=== PATIENT | female | born 1990 ===

== ENCOUNTER 2017-12-04 11:36 | Inpatient (IN) | payer OTHER ==
[2017-12-04 11:36] VITALS: BMI 30.5
[2017-12-04 14:02] LABS: BASO # 0.3 K/uL (0.0-0.2); BASO % 2.3 % (0.0-2.0); EOS # 0.1 K/uL (0.0-0.7); EOS % 0.9 % (0.0-4.0); HEMOGLOBIN 8.9 g/dL (11.0-16.0); LYMPH % 23.5 % (20.0-40.0); MEAN CORPUSCULAR HEMOGLOBIN 34.3 pg (27.0-31.0); MONO # 0.6 K/uL (0.0-0.8); MONO % 4.6 % (0.0-10.0); NEUT # 8.7 K/uL (1.8-7.0); NEUT % 68.7 % (50.0-75.0); RBC 2.61 Mil/uL (3.80-5.20); RED CELL DISTRIBUTION WIDTH 22.6 % (11.5-14.5); WHITE BLOOD COUNT 12.6 K/uL (4.8-10.8)
[2017-12-04 14:15] LABS: BLOOD UREA NITROGEN 3 mg/dL (7-17); CALCIUM 8.8 mg/dl (8.6-10.4); GFR NON-AFRICAN AMERICAN > 60; LIPASE 32 U/L (23-300)
--- NOTE | 2017-12-04 14:15 | C.PDOC ---
History Of Present Illness 27-year-old female presents to the ED for evaluation of upper abdominal pain, nausea and vomiting which began yesterday. Patient woke up this morning with dry heaving, prompting this visit. Patient also reports decreased appetite. Patient has history of Pancreatitis in July 2017, because she was drinking heavily after her brother in May. Patient notes her current pain feels similar. Patient states she has been consuming several glasses of wine several times a week; her last drink was 4 days ago. She denies fever, chills, and diarrhea. <Sarika Boo - Last Filed: 12/05/17 13:28> <Davion Donaldson - Last Filed: 12/04/17 22:21> History Per: Patient History/Exam Limitations: no limitations Onset/Duration Of Symptoms: Hrs Current Symptoms Are (Timing): Still Present Location Of Pain/Discomfort: Other (upper abdomen ) Associated Symptoms: Nausea, Vomiting. denies: Fever, Diarrhea <Sarika Boo - Last Filed: 12/05/17 13:28> Time Seen by Provider: 12/04/17 13:22 Chief Complaint (Nursing): Abdominal Pain Past Medical History Vital Signs: Last Vital Signs Temp 98.6 F 12/04/17 12:44 Pulse 106 H 12/04/17 20:17 Resp 20 12/04/17 20:17 BP 94/56 L 12/04/17 20:17 Pulse Ox 98 12/04/17 20:17 <Davion Donaldson - Last Filed: 12/04/17 22:21> Reviewed: Historical Data, Nursing Documentation, Vital Signs Vital Signs: Last Vital Signs Temp 98.6 F 12/04/17 12:44 Pulse 104 H 12/04/17 12:44 Resp 17 12/04/17 12:44 BP 114/69 12/04/17 12:44 Pulse Ox 100 12/04/17 12:44 - Medical History PMH: Anemia, Hypercholesterolemia, Hyperlipidemia, Pancreatitis Denies: Chronic Kidney Disease Surgical History: No Surg Hx Family History: States: Unknown Family Hx - Social History Hx Alcohol Use: Yes Hx Substance Use: No - Immunization History Hx Tetanus Toxoid Vaccination: Yes (2016) Hx Influenza Vaccination: No (2016) Hx Pneumococcal Vaccination: (unk) <Sarika Boo - Last Filed: 12/05/17 13:28> Review Of Systems Constitutional: Positive for: Other (decreased appetite ) Gastrointestinal: Positive for: Nausea, Vomiting, Abdominal Pain (upper). Negative for: Diarrhea <Sarika Boo - Last Filed: 12/05/17 13:28> Physical Exam - Physical Exam Appears: Non-toxic, No Acute Distress Skin: Normal Color, Warm, Dry Head: Atraumatic, Normacephalic Eye(s): bilateral: Normal Inspection Oral Mucosa: Moist Neck: Supple Chest: Symmetrical, No Deformity, No Tenderness Cardiovascular: Rhythm Regular, No Murmur Respiratory: Normal Breath Sounds, No Rales, No Rhonchi, No Wheezing Gastrointestinal/Abdominal: Soft, Tenderness (epigastric ), No Guarding, No Rebound Extremity: Normal ROM, Capillary Refill (less than 2 seconds ) Neurological/Psych: Oriented x3, Normal Speech, Normal Cognition <Sarika Boo - Last Filed: 12/05/17 13:28> ED Course And Treatment - Laboratory Results Result Diagrams: 12/04/17 13:58 12/04/17 13:58 ECG: Interpreted By Me, Viewed By Me ECG Rhythm: Sinus Rhythm (106), Nonspecific Changes Pulse Ox Interpretation: Normal Progress Note: spoke with surgical specialist/dr headley -no need for surgery in view of her previous response to steroids. they will continue to monito closely. <MendozaDavion - Last Filed: 12/04/17 22:21> - Laboratory Results Result Diagrams: 12/05/17 06:00 12/05/17 06:00 O2 Sat by Pulse Oximetry: 100 (on RA) Pulse Ox Interpretation: Normal - CT Scan/US CT abd/pelvis Other Rad Studies (CT/US): Read By Radiologist CT/US Interpretation: Hepatosplenomegaly. The liver is massively enlarged. The spleen is markedly enlarged. Patent portal venous system. Gallbladder wall enhancement and pericholecystic fluid are nonspecific findings but can be seen in acute cholecystitis. Gallstones are not evident. RUQ u/s Other Rad Studies (CT/US): Read By Radiologist CT/US Interpretation: Marked hepatosplenomegaly. Heterogeneous and echogenic liver may be seen in setting of hepatic parenchymal disease or fatty infiltration. Gallbladder wall thickening/pericholecystic edema. negative sonographic Medina's sign as assessed by the epic anesthesia analyst. No gallstones identified. Correlate clinically for possibility of acute cholecystitis. <Sarika Boo - Last Filed: 12/05/17 13:28> Medical Decision Making Medical Decision Making: Progress: Bloodwork and urinalysis ordered and reviewed. Toradol IVP and Zofran IVP given. <Sarika Boo - Last Filed: 12/05/17 13:28> Disposition Discussed With Dr.: Jamshid Be Comment: accepted the pt on his service and took over the care at 10:21PM Doctor Will See Patient In The: Hospital Counseled Patient/Family Regarding: Studies Performed, Diagnosis - Disposition Disposition Time: 19:00 <Davion Donaldson - Last Filed: 12/04/17 22:21> <Sarika Boo - Last Filed: 12/05/17 13:28> - Disposition Disposition: HOSPITALIZED Condition: FAIR - Clinical Impression Clinical Impression: Abdominal pain, Nausea, Vomiting, Hyperbilirubinemia, Jaundice, Spleen enlarged - Scribe Statement The provider has reviewed the documentation as recorded by the Scribe (Sona Patton) Provider Attestation: All medical record entries made by the Scribe were at my direction and personally dictated by me. I have reviewed the chart and agree that the record accurately reflects my personal performance of the history, physical exam, medical decision making, and the department course for this patient. I have also personally directed, reviewed, and agree with the discharge instructions and disposition. <Sarika Boo - Last Filed: 12/05/17 13:28> Decision To Admit - Pt Status Changed To: Hospital Disposition Of: Inpatient - Admit Certification Admit to Inpatient:: After my assessment, the patient will require hospitalization for at least two midnights. This is because of the severity of symptoms shown, intensity of services needed, and/or the medical risk in this patient being treated as an outpatient. - InPatient: Physician Admission Certification:: After my assessment, the patient will require hospitalization for at least two midnights. This is because of the severity of symptoms shown, intensity of services needed, and/or the medical risk in this patient being treated as an outpatient. - . Bed Request Type: Regular Admitting Physician: Jamshid Be <Davion Donaldson - Last Filed: 12/04/17 22:21> <Sarika Boo - Last Filed: 12/05/17 13:28> - . Patient Diagnosis: Abdominal pain, Nausea, Vomiting, Hyperbilirubinemia, Jaundice, Spleen enlarged
[2017-12-04 14:23] LABS: URINE BILIRUBIN 1+ (NEGATIVE); URINE BLOOD NEGATIVE (NEGATIVE); URINE CLARITY Clear (Clear); URINE COLOR Amber (YELLOW); URINE GLUCOSE (UA) NORMAL (Normal); URINE LEUKOCYTE ESTERASE NEG Leu/uL (Negative); URINE PROTEIN NEGATIVE (NEGATIVE); URINE UROBILINOGEN NORMAL mg/dL (0.2-1.0)
[2017-12-04] MEDS ORDERED: Iodixanol 320 MG/ML 100 ML BOTTLE IV ONE (15:57)
[2017-12-04] MEDS ORDERED: Morphine 4 MG/ML VIAL IV ONE (16:28)
[2017-12-04] MEDS ORDERED: Morphine 4 MG/ML VIAL ONE ×2 (16:32→19:05)
--- NOTE | 2017-12-04 17:37 | CT ---
Date of service: 12/04/2017 PROCEDURE: CT Abdomen and Pelvis with contrast HISTORY: Abdominal pain. Negative test (concurrent with this examination). COMPARISON: None. TECHNIQUE: Intravenous contrast dose: 100 cc Visipaque 320 Radiation dose: Total exam DLP = 848.78 mGy-cm. This CT exam was performed using one or more of the following dose reduction techniques: Automated exposure control, adjustment of the mA and/or kV according to patient size, and/or use of iterative reconstruction technique. FINDINGS: LOWER THORAX: Linear atelectasis at the right lung base. LIVER: Hepatic steatosis. Massive hepatomegaly. Cephalocaudal dimension 30.1 cm. Orthogonal measurements 24.9 and 16.3 cm. Heterogeneous appearance of the liver without discrete mass. This is particularly evident in the right hepatic lobe. Attenuation of inferior vena cava within the liver. Dilated portal veins. No evidence of portal vein thrombosis.. GALLBLADDER AND BILE DUCTS: Contrast enhancement the gallbladder wall. Nonspecific finding. No gallstones identified. Gallbladder fossa fluid identified. PANCREAS: Unremarkable. No gross lesion or ductal dilatation. SPLEEN: Massive splenomegaly. Orthogonal measurements 10 x 18 cm. ADRENALS: Unremarkable. No mass. KIDNEYS AND URETERS: Unremarkable. No hydronephrosis. No solid mass. VASCULATURE: Unremarkable. No aortic aneurysm. BOWEL: Unremarkable. No obstruction. No gross mural thickening. APPENDIX: Normal appendix. PERITONEUM: Trace free fluid identified in the pelvis/cul de sac. No free air. LYMPH NODES: Unremarkable. No enlarged lymph nodes. BLADDER: Unremarkable. REPRODUCTIVE: Unremarkable. BONES: No acute fracture. OTHER FINDINGS: None. IMPRESSION: Hepatosplenomegaly. The liver is massively enlarged. The spleen is markedly enlarged. Patent portal venous system. Gallbladder wall enhancement and pericholecystic fluid are nonspecific findings but can be seen in acute cholecystitis. Gallstones are not evident. Additional benign and/or incidental findings described above.
[2017-12-04] MEDS ORDERED: Potassium Chloride 20 mEq 100 ML ONE (18:51)
[2017-12-04 19:05] LABS: ALB/GLOB RATIO 0.8 (1.0-2.1); ALBUMIN 3.6 g/dL (3.5-5.0); BILIRUBIN,DIRECT 9.9 mg/dL (0.0-0.4)
[2017-12-04] MEDS ORDERED: Morphine 4 MG/ML VIAL IV STA (19:05)
--- NOTE | 2017-12-04 22:38 | CP.PCM.CON ---
History of Present Illness - History of Present Illness History of Present Illness: General surgery consult note for Dr. Hoyt Consulted for: acalculous cholecystitis Patient is a 27F with PMH of pancreatitis, hepatomegaly, hypertriglyceridemia, alcoholic hepatitis who was referred to the ED by her primary physician for RUQ abdominal pain and jaundice. Patient states that the pain comes and goes, does not radiate, denies any shoulder or back pain, denies any nausea, vomiting, diarrhea, constipation, melena, hematochezia, dysuria, hematuria, fevers, or chills or any other symptoms. Last BM was normal color and caliber this AM. Patient denies any association with a particular food. Patient was recently admitted at [facility] for similar symptoms 3.5 months ago. Patient had hepatomegaly, thickened gallbladder wall, pericholic fluid, and transaminitis, including bilirubin of 20 at that time. Patient was diagnosed with acute alcoholic hepatitis, treated with steroids, improved, and was sent home. Patient states she finished her steroids, but that there were other medications for her jaundiced/liver that she was unable to take d/t cost. Patient states that she quit drinking after last admission, but that her brother recently and so she has been drinking more--admitting to 2-3 beers at a time, but claims last ingestion was last week. PMH: pancreatitis, HLD, hepatosplenomegaly, hypertriglyceridemia, ectopic , alcoholic hepatitis PSH: ectopic excision ALL: NKDA Social: Denies any smoking, 2-3beers, denies any marijuana or other drugs Review of Systems - Review of Systems All systems: reviewed and no additional remarkable complaints except (as per HPI) Past Patient History - Infectious Disease Hx of Infectious Diseases: None - Past Medical History & Family History Past Medical History?: Yes Past Family History: Reviewed and not pertinent - Past Social History Smoking Status: Never Smoked Alcohol: Occasional Drugs: Denies - CARDIAC Hx Hypercholesterolemia: Yes - PULMONARY Hx Respiratory Disorders: No - NEUROLOGICAL Hx Neurological Disorder: No - HEENT Hx HEENT Problems: No - RENAL Hx Chronic Kidney Disease: No - ENDOCRINE/METABOLIC Hx Endocrine Disorders: No - HEMATOLOGICAL/ONCOLOGICAL Hx Anemia: Yes - INTEGUMENTARY Hx Dermatological Problems: No - MUSCULOSKELETAL/RHEUMATOLOGICAL Hx Musculoskeletal Disorders: No - GASTROINTESTINAL Hx Pancreatitis: Yes - GENITOURINARY/GYNECOLOGICAL Hx Genitourinary Disorders: Yes Other/Comment: IRREGULAR PERIOD - PSYCHIATRIC Hx Substance Use: No - SURGICAL HISTORY Hx Section: Yes - ANESTHESIA Hx Anesthesia: Yes Hx Anesthesia Reactions: No Hx Malignant Hyperthermia: No Meds Allergies/Adverse Reactions: Allergies Allergy/AdvReac Type Severity Reaction Status Date / Time No Known Allergies Allergy Verified 12/04/17 12:48 Physical Exam - Constitutional Appears: Well, Non-toxic, No Acute Distress - Head Exam Head Exam: ATRAUMATIC, NORMOCEPHALIC - Eye Exam Eye Exam: EOMI, Scleral icterus. absent: Conjunctival injection - ENT Exam ENT Exam: Mucous Membranes Moist, Normal Oropharynx - Respiratory Exam Respiratory Exam: NORMAL BREATHING PATTERN. absent: Accessory Muscle Use, Respiratory Distress - Cardiovascular Exam Cardiovascular Exam: RRR - GI/Abdominal Exam GI & Abdominal Exam: Soft, Tenderness (RUQ moderate tenderness to palpation). absent: Distended, Rebound Additional comments: negative wynn's sign - Extremities Exam Extremities exam: Positive for: pedal pulses present. Negative for: calf tenderness, pedal edema - Back Exam Back exam: absent: CVA tenderness (L), CVA tenderness (R) - Neurological Exam Neurological exam: Alert, Oriented x3 - Psychiatric Exam Psychiatric exam: Normal Affect, Normal Mood - Skin Skin Exam: Dry, Intact, Warm Additional comments: jaundiced Results - Vital Signs Recent Vital Signs: Last Vital Signs Temp 98.6 F 12/04/17 12:44 Pulse 106 H 12/04/17 22:20 Resp 18 12/04/17 22:20 BP 105/67 12/04/17 22:20 Pulse Ox 98 12/04/17 22:20 - Labs Result Diagrams: 12/04/17 13:58 12/04/17 13:58 Labs: Laboratory Results - last 24 hr 12/04/17 12/04/17 12/04/17 13:58 13:58 14:13 WBC 12.6 H RBC 2.61 L Hgb 8.9 L Hct 27.1 L MCV 104.0 H MCH 34.3 H MCHC 33.0 RDW 22.6 H Plt Count 204 MPV 8.0 Neut % (Auto) 68.7 Lymph % (Auto) 23.5 [place] % (Auto) 4.6 Eos % (Auto) 0.9 Baso % (Auto) 2.3 H Neut # (Auto) 8.7 H Lymph # (Auto) 3.0 [place] # (Auto) 0.6 Eos # (Auto) 0.1 Baso # (Auto) 0.3 H Sodium 142 Potassium 3.3 L Chloride 103 Carbon Dioxide 23 Anion Gap 19 BUN 3 L Creatinine 0.4 L Est GFR ( Amer) > 60 Est GFR (Non-Af Amer) > 60 Random Glucose 111 H Calcium 8.8 Total Bilirubin Direct Bilirubin AST ALT Alkaline Phosphatase Total Protein Albumin Globulin Albumin/Globulin Ratio Lipase 32 Urine Color [place] Urine Clarity Clear Urine pH 6.0 Ur Specific [place] 1.002 L Urine Protein Negative Urine Glucose (UA) Normal Urine Ketones Negative Urine Blood Negative Urine Nitrate Negative Urine Bilirubin 1+ H Urine Urobilinogen Normal Ur Leukocyte Esterase Neg 12/04/17 18:30 WBC RBC Hgb Hct MCV MCH MCHC RDW Plt Count MPV Neut % (Auto) Lymph % (Auto) [place] % (Auto) Eos % (Auto) Baso % (Auto) Neut # (Auto) Lymph # (Auto) [place] # (Auto) Eos # (Auto) Baso # (Auto) Sodium Potassium Chloride Carbon Dioxide Anion Gap BUN Creatinine Est GFR ( Amer) Est GFR (Non-Af Amer) Random Glucose Calcium Total Bilirubin 11.6 H Direct Bilirubin 9.9 H AST 139 H D ALT 15 Alkaline Phosphatase 262 H D Total Protein 8.1 Albumin 3.6 Globulin 4.5 H Albumin/Globulin Ratio 0.8 L Lipase Urine Color Urine Clarity Urine pH Ur Specific [place] Urine Protein Urine Glucose (UA) Urine Ketones Urine Blood Urine Nitrate Urine Bilirubin Urine Urobilinogen Ur Leukocyte Esterase - Imaging and Cardiology CT scan - abdomen Status: Image reviewed by me, Report reviewed by me US - abdomen Status: Image reviewed by me, Report reviewed by me Assessment & Plan - Assessment and Plan (Free Text) Assessment: 27F with RUQ tenderness, hyperbilirubinemia, transaminitis--likely hepatic in origin Plan: No surgical intervention planned at this time pending further evaluatino Recommend GI consult for hyperbilirubinemia, elevated LFT's, hepatosplenomegaly Recommend IV antibiotics PRN pain and nausea medication Trend CBC/CMP NPO IVF Will continue to follow with you closely Discussed with Dr. Hoyt, who agrees with above Viktoriya Martinez, PG2Y
[2017-12-04 23:52] VITALS: RESP 20
[2017-12-05] MEDS ORDERED: Ciprofloxacin 200mg/100ml D5W 100 ML IVPB STA (00:45)
[2017-12-05] MEDS ORDERED: Multivitamin (MVI) 10 ML, Thiamine 100 MG, Folic Acid 1 MG in Sodium Chloride 0.9% 1,00... IV ONE (00:52)
--- NOTE | 2017-12-05 01:03 | CP.PCM.HP ---
<Juan Pablo Marin - Last Filed: 12/05/17 02:05> History of Present Illness - History of Present Illness History of Present Illness: Juan Pablo Marin PGY-1, H&P for hospitalist CC: Abdominal pain/distension This is a 27 year old female with PMH of alcoholic pancreatitis, suspected alcoholic hepatitis in July 2017, hypertriglycemia, alcohol abuse, and anemia who presents with a 2 day history of abdominal pain with nausea and abdominal distension. Abdominal pain is described as located in the RUQ, intermittent, nonradiating, pressure, that is 8/10. Pt states that the pain was worse with di nner (12/03), but did not change after having breakfast today. Pt reports that she feels full after drinking or eating anything, and states that her abdomen looks more distended than usual. Pt denies fever, chills, chest pain, SOB, n/v/d, change in bowel movements, hematemesis, hematochezia, melena, rash, puritus, sick contacts, recent illness. Pt reports that her brother recently and she has been drinking alcohol. Pt was in [facility] [place] in August (for 8 days), where she drank heavily. Pt's last drink was 4 days ago, 12/02. PMD: Pancreatitis, hypertriglycemia, anemia PSH: 2012 Family History: Father with DM, Uncle had Leukemia Meds: Iron supplement Allergies: NKDA Social history: 2-3 beers on the weekdays, one bottle of wine on the weekend, denies drug or tobacco use. Lives in with and one child. Present on Admission - Present on Admission Any Indicators Present on Admission: No Review of Systems - Review of Systems All systems: reviewed and no additional remarkable complaints except (as per HPI) Past Patient History - Infectious Disease Hx of Infectious Diseases: None - Past Medical History & Family History Past Medical History?: Yes Past Family History: Reviewed and not pertinent - Past Social History Smoking Status: Never Smoked Alcohol: Occasional Drugs: Denies - CARDIAC Hx Hypercholesterolemia: Yes - PULMONARY Hx Respiratory Disorders: No - NEUROLOGICAL Hx Neurological Disorder: No - HEENT Hx HEENT Problems: No - RENAL Hx Chronic Kidney Disease: No - ENDOCRINE/METABOLIC Hx Endocrine Disorders: No - HEMATOLOGICAL/ONCOLOGICAL Hx Anemia: Yes - INTEGUMENTARY Hx Dermatological Problems: No - MUSCULOSKELETAL/RHEUMATOLOGICAL Hx Musculoskeletal Disorders: No - GASTROINTESTINAL Hx Pancreatitis: Yes - GENITOURINARY/GYNECOLOGICAL Hx Genitourinary Disorders: Yes Other/Comment: IRREGULAR PERIOD - PSYCHIATRIC Hx Substance Use: No - SURGICAL HISTORY Hx Section: Yes - ANESTHESIA Hx Anesthesia: Yes Hx Anesthesia Reactions: No Hx Malignant Hyperthermia: No Meds Allergies/Adverse Reactions: Allergies Allergy/AdvReac Type Severity Reaction Status Date / Time No Known Allergies Allergy Verified 12/04/17 12:48 Physical Exam - Constitutional Appears: Non-toxic, No Acute Distress - Head Exam Head Exam: ATRAUMATIC - Eye Exam Eye Exam: EOMI, Normal appearance, Scleral icterus - ENT Exam ENT Exam: Mucous Membranes Moist - Neck Exam Neck exam: Positive for: Normal Inspection - Respiratory Exam Respiratory Exam: Clear to Auscultation Bilateral. absent: Rales, Rhonchi, Wheezes, Respiratory Distress - Cardiovascular Exam Cardiovascular Exam: REGULAR RHYTHM, +S1, +S2 - GI/Abdominal Exam GI & Abdominal Exam: Distended (epigastric fullness), Normal Bowel Sounds, Orga nomegaly (liver edge palpable approx 10 cm from costophrenic angle, sleen edge palpable approx 6 cm from costophrenic angle), Soft, Tenderness ((+) moderate tenderness at the inferior liver edge, (+) wynn's sign). absent: Firm, Guarding, Rebound, Rigid Additional comments: (+) prominent nonpalpable veins on upper abdomen - Extremities Exam Extremities exam: Positive for: normal capillary refill, normal inspection, pedal pulses present. Negative for: calf tenderness, pedal edema, tenderness - Back Exam Back exam: NORMAL INSPECTION. absent: CVA tenderness (L), CVA tenderness (R) - Neurological Exam Neurological exam: Alert, Oriented x3 - Psychiatric Exam Psychiatric exam: Normal Affect, Normal Mood - Skin Skin Exam: Dry, Warm Additional comments: (+) jaundice Results - Vital Signs Recent Vital Signs: Last Vital Signs Temp 98.9 F 12/04/17 23:51 Pulse 98 H 12/04/17 23:51 Resp 20 12/04/17 23:51 BP 101/66 12/04/17 23:51 Pulse Ox 97 12/04/17 23:51 - Labs Result Diagrams: 12/04/17 13:58 12/04/17 13:58 Labs: Laboratory Results - last 24 hr 12/04/17 12/04/17 12/04/17 13:58 13:58 14:13 WBC 12.6 H RBC 2.61 L Hgb 8.9 L Hct 27.1 L MCV 104.0 H MCH 34.3 H MCHC 33.0 RDW 22.6 H Plt Count 204 MPV 8.0 Neut % (Auto) 68.7 Lymph % (Auto) 23.5 [place] % (Auto) 4.6 Eos % (Auto) 0.9 Baso % (Auto) 2.3 H Neut # (Auto) 8.7 H Lymph # (Auto) 3.0 [place] # (Auto) 0.6 Eos # (Auto) 0.1 Baso # (Auto) 0.3 H Sodium 142 Potassium 3.3 L Chloride 103 Carbon Dioxide 23 Anion Gap 19 BUN 3 L Creatinine 0.4 L Est GFR ( Amer) > 60 Est GFR (Non-Af Amer) > 60 Random Glucose 111 H Calcium 8.8 Total Bilirubin Direct Bilirubin AST ALT Alkaline Phosphatase Total Protein Albumin Globulin Albumin/Globulin Ratio Lipase 32 Urine Color [place] Urine Clarity Clear Urine pH 6.0 Ur Specific [place] 1.002 L Urine Protein Negative Urine Glucose (UA) Normal Urine Ketones Negative Urine Blood Negative Urine Nitrate Negative Urine Bilirubin 1+ H Urine Urobilinogen Normal Ur Leukocyte Esterase Neg 12/04/17 18:30 WBC RBC Hgb Hct MCV MCH MCHC RDW Plt Count MPV Neut % (Auto) Lymph % (Auto) [place] % (Auto) Eos % (Auto) Baso % (Auto) Neut # (Auto) Lymph # (Auto) [place] # (Auto) Eos # (Auto) Baso # (Auto) Sodium Potassium Chloride Carbon Dioxide Anion Gap BUN Creatinine Est GFR ( Amer) Est GFR (Non-Af Amer) Random Glucose Calcium Total Bilirubin 11.6 H Direct Bilirubin 9.9 H AST 139 H D ALT 15 Alkaline Phosphatase 262 H D Total Protein 8.1 Albumin 3.6 Globulin 4.5 H Albumin/Globulin Ratio 0.8 L Lipase Urine Color Urine Clarity Urine pH Ur Specific [place] Urine Protein Urine Glucose (UA) Urine Ketones Urine Blood Urine Nitrate Urine Bilirubin Urine Urobilinogen Ur Leukocyte Esterase Assessment & Plan - Assessment and Plan (Free Text) Assessment: This is a 27 year old female with PMH of alcoholic pancreatitis, suspected alcoholic hepatitis in July 2017, hypertriglycemia, alcohol abuse, and anemia who presents with a 2 day history of abdominal pain with nausea and abdominal distension. Plan: RUQ abdominal pain; possibly Cholecystitis -seen at [facility] in July 2017 for alcoholic pancreatitis and noted to have suspected alcoholic hepatitis. She was discharged home with Prednisone and Protonix. - abdominal CT (08/16/17) showed gallbladder appears incompletely distended with enhancemen of the GB wall and a small amount of pericholecystic fluid. -Liver CT (08/17/17) showed hepatosplenomegaly, fatty liver, two areas of low attenuation, significance uncertain, hemangioma less likely. -Abdominal U/S with hepatomegaly, splenomegaly, no acute priya noted, no stones. -AFP and CA 19-9 were within normal limits -Abdominal US shows gallbladder wall thickening 4.4 with pericholecystic fluid. markedly enlarged heterogenous liver. -Abdominal CT shows gallbladder wall enhancement and pericholecystic fluid are nonspecific findings but can be seen in acute cholecystitis; without stones. hepatosplenomegaly (massively enlarged liver, markedly enlarged spleen). Patent portal vein. (see full report) -Surgery consult, Dr. Hoyt -NPO, Zosyn, no intervention at this time -morphine 1mg IVP q4h PRN SIRS criteria -leukocytosis of 12.6 and tachycardia -Zosyn as above Jaundice with direct hyperbilirubinemia -pt has history of direct hyperbilirubinemia -t bili is 11.6, direct bili is 9.9 -gastroenterology consult, Dr. Escalante Transaminitis -AST/ALT/ALP 139/15/262 on admission -f/u hepatitis panel -Avoid hepatotoxic agents -GI consulted Macrocytic anemia; likely due to vitamin deficiency -pt has hx of iron deficiency anemia -Hgb 8.9, MCV 104 -no signs of bleeding -no indication for transfusion at this time -f/u iron, tibc, %sat, ferritin, vitb12, folate -continue home iron PO supplementation -ferrous sulfate 325 mg PO daily Hypokalemia -potassium is 3.3 on admission -Kdur 40 meq PO -will monitor and replete as needed Hx of alcohol abuse -last drink 4 days ago (12/02) -CIWA protocol with ativan 1 mg PO Q4h prn symptoms of alcohol withdrawal -in light of hepatomegaly, SIRS criteria and history of alcoholic hepatitis, will start pt on ciprofloxacin for SBP prophylaxis -pt with history of coagulopathy (INR 1.96 on july 2017 admission); likely due to liver disease -banana bag x1 -f/u PT/PTT/INR Hx of Hypertriglyceridemia -f/u lipid panel PPX/diet: Pepcid 40 mg PO daily for Gi ppx SCDs for DVT ppx NPO except meds Case discussed and reviewed with attending physician, Dr. Felipe Marin PGY-1 <Jamshid Be - Last Filed: 12/05/17 06:29> Results - Vital Signs Recent Vital Signs: Last Vital Signs Temp 98.9 F 12/04/17 23:51 Pulse 98 H 12/04/17 23:51 Resp 20 12/04/17 23:51 BP 101/66 12/04/17 23:51 Pulse Ox 97 12/04/17 23:51 - Labs Result Diagrams: 12/04/17 13:58 12/04/17 13:58 Labs: Laboratory Results - last 24 hr 12/04/17 12/04/17 12/04/17 13:58 13:58 14:13 WBC 12.6 H RBC 2.61 L Hgb 8.9 L Hct 27.1 L MCV 104.0 H MCH 34.3 H MCHC 33.0 RDW 22.6 H Plt Count 204 MPV 8.0 Neut % (Auto) 68.7 Lymph % (Auto) 23.5 [place] % (Auto) 4.6 Eos % (Auto) 0.9 Baso % (Auto) 2.3 H Neut # (Auto) 8.7 H Lymph # (Auto) 3.0 [place] # (Auto) 0.6 Eos # (Auto) 0.1 Baso # (Auto) 0.3 H Sodium 142 Potassium 3.3 L Chloride 103 Carbon Dioxide 23 Anion Gap 19 BUN 3 L Creatinine 0.4 L Est GFR ( Amer) > 60 Est GFR (Non-Af Amer) > 60 Random Glucose 111 H Calcium 8.8 Total Bilirubin Direct Bilirubin AST ALT Alkaline Phosphatase Total Protein Albumin Globulin Albumin/Globulin Ratio Lipase 32 Urine Color [place] Urine Clarity Clear Urine pH 6.0 Ur Specific [place] 1.002 L Urine Protein Negative Urine Glucose (UA) Normal Urine Ketones Negative Urine Blood Negative Urine Nitrate Negative Urine Bilirubin 1+ H Urine Urobilinogen Normal Ur Leukocyte Esterase Neg 12/04/17 18:30 WBC RBC Hgb Hct MCV MCH MCHC RDW Plt Count MPV Neut % (Auto) Lymph % (Auto) [place] % (Auto) Eos % (Auto) Baso % (Auto) Neut # (Auto) Lymph # (Auto) [place] # (Auto) Eos # (Auto) Baso # (Auto) Sodium Potassium Chloride Carbon Dioxide Anion Gap BUN Creatinine Est GFR ( Amer) Est GFR (Non-Af Amer) Random Glucose Calcium Total Bilirubin 11.6 H Direct Bilirubin 9.9 H AST 139 H D ALT 15 Alkaline Phosphatase 262 H D Total Protein 8.1 Albumin 3.6 Globulin 4.5 H Albumin/Globulin Ratio 0.8 L Lipase Urine Color Urine Clarity Urine pH Ur Specific [place] Urine Protein Urine Glucose (UA) Urine Ketones Urine Blood Urine Nitrate Urine Bilirubin Urine Urobilinogen Ur Leukocyte Esterase Assessment & Plan - Date & Time Date: 12/05/17 (I have seen and examined the patient. I agree with the findings and plan of care as documented by Dr. Marin. Patient with right upper abdominal pain. Transaminitis. History of alcohol abuse. SIRS. CIWA protocol. Surgery and GI consult. Zosyn. Concern for SBP. Symptomatic treatment. Monitor for acute changes.) Time: 06:27 Attending/Attestation - Attestation I have personally seen and examined this patient.: Yes I have fully participated in the care of the patient.: Yes I have reviewed all pertinent clinical information: Yes
[2017-12-05] MEDS: Piperacill/Tazo 3.375gm in Dex 3.375 GM/50 ML BAG IVPB SCH ×5 (05:30→22:00)
[2017-12-05 06:38] LABS: HEMOGLOBIN 7.9 g/dL (11.0-16.0); MEAN CELL VOLUME 103.9 fL (81.0-99.0); MEAN CORPUSCULAR HEMOGLOBIN 34.8 pg (27.0-31.0); MEAN CORPUSCULAR HGB CONC 33.5 g/dL (33.0-37.0); MEAN PLATELET VOLUME 8.3 fL (7.2-11.7); PLATELET COUNT 156 K/uL (130-400); RBC 2.26 Mil/uL (3.80-5.20); RED CELL DISTRIBUTION WIDTH 22.3 % (11.5-14.5)
[2017-12-05 06:49] LABS: INR 2.4; PROTHROMBIN TIME 26.1 SECONDS (9.7-12.2)
[2017-12-05] MEDS: Lactated Ringer's 1,000 ML IV SCH ×2 (07:44)
[2017-12-05 08:01] LABS: ALB/GLOB RATIO 0.8 (1.0-2.1); ALBUMIN 2.9 g/dL (3.5-5.0); ALT/SGPT 18 U/L (9-52); AST/SGOT 96 U/L (14-36); BILIRUBIN,DIRECT 8.7 mg/dL (0.0-0.4); BLOOD UREA NITROGEN 4 mg/dL (7-17); CALCIUM 8.1 mg/dl (8.6-10.4); GFR NON-AFRICAN AMERICAN > 60; HDL CHOLESTEROL 17 mg/dL (30-70)
[2017-12-05 08:07] LABS: LDL CHOLESTEROL 103 mg/dL (0-129)
[2017-12-05 08:24] LABS: IRON 123 ug/dL (37-170)
[2017-12-05 08:31] LABS: HEPATITIS B SURFACE AG Negative (NEGATIVE)
[2017-12-05 08:34] LABS: % IRON SATURATION 50 (20-55); TOTAL IRON BINDING CAPACITY 245 ug/dL (250-450)
[2017-12-05 08:36] LABS: FERRITIN 17.3 ng/mL
[2017-12-05 08:37] LABS: HEPATITIS A IGM NEGATIVE (NEGATIVE); HEPATITIS B CORE AB NEGATIVE (NEGATIVE)
[2017-12-05 08:49] LABS: HEPATITIS C ANTIBODY NEGATIVE (NEGATIVE)
[2017-12-05 08:56] LABS: FOLATE 3.8 ng/mL
--- NOTE | 2017-12-05 09:38 | CP.PCM.PN ---
Subjective - Date & Time of Evaluation Date of Evaluation: 12/05/17 Time of Evaluation: 09:20 - Subjective Subjective: Medical Attending Note: Patient seen and examined at bedside. Patient reports she came in because of right sided upper quadrant pain that started on and came into the Thursday at night. Patient denies nausea, denies vomitting, denies chest pain, denies fever, denies chills, denies constipation, denies BRBPR, reports had a normal bowel movement this morning. patient reports she had yellowing of the skin that started about one week ago. Patient reports started drinking following the recent of her brother following this past May. Patient reports she has not been Alcoholic Anonymous, and has attempted to see GI post hospitalization in [place] this past July but she could not afford it. Patient did complete prednisone as directed. Objective - Vital Signs/Intake and Output Vital Signs (last 24 hours): Temp Pulse Resp BP Pulse Ox 98.6 F 93 H 20 98/63 L 97 12/05/17 07:56 12/05/17 07:56 12/05/17 07:56 12/05/17 07:56 12/05/17 07:56 Intake and Output: 12/05/17 12/05/17 06:59 18:59 Intake Total 857 Balance 857 - Medications Medications: Current Medications Famotidine (Pepcid) 40 mg PO DAILY M[facility]ELA Ferrous Sulfate (Feosol) 325 mg PO DAILY [facility] Lactated Ringer's (Lactated Ringer's) 1,000 mls @ 125 mls/hr IV .Q8H [facility] Last Admin: 12/05/17 07:44 Dose: Not Given Piperacillin Sod/Tazobactam Sod (Zosyn 3.375 Gm Iv Premix) 3.375 gm in 50 mls @ 200 mls/hr IVPB Q6H [facility]; Protocol Last Admin: 12/05/17 05:30 Dose: 200 mls/hr Multivitamins/Vitamin C 10 ml/Thiamine HCl 100 mg/ Folic Acid 1 mg/ Sodium Chloride 1,011.2 mls @ 43 mls/hr IV .[id number] ONE Stop: 12/06/17 00:22 Last Admin: 12/05/17 01:30 Dose: 43 mls/hr Ciprofloxacin (Cipro 400mg/200ml Dsw) 400 mg in 200 mls @ 133 mls/hr IVPB Q12H MARCELA; Protocol Morphine Sulfate (Morphine) 1 mg IV Q4H PRN PRN Reason: Pain, severe (8-10) Ondansetron HCl (Zofran Inj) 4 mg IVP Q6H PRN PRN Reason: Nausea/Vomiting Pneumococcal Polyvalent Vaccine (Pneumovax 23 Vaccine) 0.5 ml IM .ONCE ONE Stop: 12/06/17 10:01 Tramadol HCl (Ultram) 50 mg PO Q6H PRN PRN Reason: Pain, moderate (4-7) Last Admin: 12/05/17 00:30 Dose: 50 mg - Labs Labs: 12/05/17 06:00 12/05/17 06:00 PT 26.1 SECONDS (9.7-12.2) H 12/05/17 06:00 INR 2.4 12/05/17 06:00 APTT 45 SECONDS (21-34) H 12/05/17 06:00 - Constitutional Appears: Non-toxic, No Acute Distress, Younger Than Stated Age, Other (jaundice) - Head Exam Head Exam: NORMAL INSPECTION - Eye Exam Eye Exam: EOMI, Scleral icterus. absent: Nystagmus Pupil Exam: PERRL - ENT Exam ENT Exam: Mucous Membranes Moist - Respiratory Exam Respiratory Exam: Clear to Ausculation Bilateral, NORMAL BREATHING PATTERN. absent: Rales, Rhonchi, Wheezes - Cardiovascular Exam Cardiovascular Exam: RRR, +S1, +S2 - GI/Abdominal Exam GI & Abdominal Exam: Soft, Normal Bowel Sounds. absent: Firm, Guarding, Rigid, Rebound Additional comments: + fluid wave + hepatomegaly, firm no guarding - Extremities Exam Extremities Exam: absent: Pedal Edema, Tenderness - Neurological Exam Neurological Exam: Alert, Awake, Oriented x3 - Skin Skin Exam: Dry, Intact, Warm Additional comments: jaundiced Assessment and Plan (1) Right upper quadrant pain Assessment & Plan: Gallbladder US pending official read general surgery came to evaluate on admission Pending GI evaluation Patient with hx of alcoholic hepatitis and gallstones Shamika's Discriminant: 74.3--Poor prognosis MELD score: 25 points 19.6% estimated 3 month mortality Status: Acute (2) Alcoholic hepatitis Assessment & Plan: Shamika's Discriminant: 74.3--Poor prognosis MELD score: 25 points 19.6% estimated 3 month mortality patient has completed steroid per July 2017 on discharge; has not been seen by GI secondary to unable to afford fee Status: Acute (3) Hyperbilirubinemia Assessment & Plan: risk alcohol hepatitis and gallstones Status: Acute (4) Transaminitis Assessment & Plan: hepatitis panel negative Status: Acute (5) Bereavement Assessment & Plan: patient is coping with the of her brother i have placed for psych and pastoral care Status: Acute (6) Depression Assessment & Plan: psych evaluation Status: Acute (7) Anemia Assessment & Plan: ordered for reticulocyte count, ferritin, iron studies, b12, folate, occult blood patient denies coughing up blood and reports normal bowel movements patient denies hx of menorrhagia Status: Acute (8) Prophylactic measure Assessment & Plan: scds b/l ambulatory pepcid 40mg PO daily Status: Acute
[2017-12-05] MEDS ORDERED: Phytonadione 10 mg/ml Inj (Adult) SC ONE (09:45)
--- NOTE | 2017-12-05 10:39 | CP.PCM.CON ---
History of Present Illness - History of Present Illness History of Present Illness: ASked to see pt today for jaundice. Reports Heavu etoh use on and off. Recent of brother- had recurrence of heavy etoh use- last was thursday. 08/10- admietted to hospital- TB=14. Liver w/u reportedly neg -hep profile, AMA, ASMA, dopplers, other labs. Was treated with prednis 40mg daily for alcoholic hepatitis. She was lost to f/u. Denies RB, melena. Denies drugs, meds, tylenol , cocaine Review of Systems - Constitutional Constitutional: absent: Anorexia, Weight Loss - EENT Eyes: absent: Photophobia Nose/Mouth/Throat: absent: Mouth Lesions - Respiratory Respiratory: absent: Cough, Hemoptysis - Gastrointestinal Gastrointestinal: Abdominal Pain. absent: Coffee Ground Emesis, Constipation, Diarrhea, Dysphagia, Hematemesis, Hematochezia, Melena, Nausea - Genitourinary Genitourinary: absent: Hematuria - Integumentary Integumentary: Jaundice. absent: Rash - Neurological Neurological: absent: Convulsions Past Patient History - Infectious Disease Hx of Infectious Diseases: None - Past Medical History & Family History Past Medical History?: Yes Past Family History: Reviewed and not pertinent - Past Social History Smoking Status: Never Smoked Alcohol: Occasional Drugs: Denies - CARDIAC Hx Hypercholesterolemia: Yes - PULMONARY Hx Respiratory Disorders: No - NEUROLOGICAL Hx Neurological Disorder: No - HEENT Hx HEENT Problems: No - RENAL Hx Chronic Kidney Disease: No - ENDOCRINE/METABOLIC Hx Endocrine Disorders: No - HEMATOLOGICAL/ONCOLOGICAL Hx Anemia: Yes - INTEGUMENTARY Hx Dermatological Problems: No - MUSCULOSKELETAL/RHEUMATOLOGICAL Hx Musculoskeletal Disorders: No - GASTROINTESTINAL Hx Pancreatitis: Yes - GENITOURINARY/GYNECOLOGICAL Hx Genitourinary Disorders: Yes Other/Comment: IRREGULAR PERIOD - PSYCHIATRIC Hx Substance Use: No - SURGICAL HISTORY Hx Section: Yes - ANESTHESIA Hx Anesthesia: Yes Hx Anesthesia Reactions: No Hx Malignant Hyperthermia: No Meds Allergies/Adverse Reactions: Allergies Allergy/AdvReac Type Severity Reaction Status Date / Time No Known Allergies Allergy Verified 12/04/17 12:48 - Medications Medications: Current Medications Famotidine (Pepcid) 40 mg PO DAILY [facility] Ferrous Sulfate (Feosol) 325 mg PO DAILY [facility] Last Admin: 12/05/17 10:35 Dose: 325 mg Lactated Ringer's (Lactated Ringer's) 1,000 mls @ 125 mls/hr IV .Q8H [facility] Last Admin: 12/05/17 07:44 Dose: Not Given Piperacillin Sod/Tazobactam Sod (Zosyn 3.375 Gm Iv Premix) 3.375 gm in 50 mls @ 200 mls/hr IVPB Q6H [facility]; Protocol Last Admin: 12/05/17 10:35 Dose: 200 mls/hr Multivitamins/Vitamin C 10 ml/Thiamine HCl 100 mg/ Folic Acid 1 mg/ Sodium Chloride 1,011.2 mls @ 43 mls/hr IV .[id number] ONE Stop: 12/06/17 00:22 Last Admin: 12/05/17 01:30 Dose: 43 mls/hr Morphine Sulfate (Morphine) 1 mg IV Q4H PRN PRN Reason: Pain, severe (8-10) Ondansetron HCl (Zofran Inj) 4 mg IVP Q6H PRN PRN Reason: Nausea/Vomiting Physical Exam - Constitutional Appears: Well - Respiratory Exam Respiratory Exam: Clear to Auscultation Bilateral - Cardiovascular Exam Cardiovascular Exam: RRR - GI/Abdominal Exam GI & Abdominal Exam: Normal Bowel Sounds, Soft, Tenderness. absent: Guarding, Mass, Rebound Additional comments: sl tender RUQ - Neurological Exam Neurological exam: Alert, Oriented x3 Results - Vital Signs Recent Vital Signs: Last Vital Signs Temp 98.6 F 12/05/17 07:56 Pulse 93 H 12/05/17 07:56 Resp 20 12/05/17 07:56 BP 98/63 L 12/05/17 07:56 Pulse Ox 97 12/05/17 07:56 - Labs Result Diagrams: 12/05/17 06:00 12/05/17 06:00 Labs: Laboratory Results - last 24 hr 12/04/17 12/04/17 12/04/17 13:58 13:58 14:13 WBC 12.6 H RBC 2.61 L Hgb 8.9 L Hct 27.1 L MCV 104.0 H MCH 34.3 H MCHC 33.0 RDW 22.6 H Plt Count 204 MPV 8.0 Neut % (Auto) 68.7 Lymph % (Auto) 23.5 [place] % (Auto) 4.6 Eos % (Auto) 0.9 Baso % (Auto) 2.3 H Neut # (Auto) 8.7 H Lymph # (Auto) 3.0 [place] # (Auto) 0.6 Eos # (Auto) 0.1 Baso # (Auto) 0.3 H Retic Count PT INR APTT Sodium 142 Potassium 3.3 L Chloride 103 Carbon Dioxide 23 Anion Gap 19 BUN 3 L Creatinine 0.4 L Est GFR ( Amer) > 60 Est GFR (Non-Af Amer) > 60 Random Glucose 111 H Calcium 8.8 Phosphorus Magnesium Iron TIBC % Saturation Ferritin Total Bilirubin Direct Bilirubin AST ALT Alkaline Phosphatase Total Protein Albumin Globulin Albumin/Globulin Ratio Triglycerides Cholesterol LDL Cholesterol Direct HDL Cholesterol Lipase 32 Vitamin B12 Folate Urine Color [place] Urine Clarity Clear Urine pH 6.0 Ur Specific Garrett 1.002 L Urine Protein Negative Urine Glucose (UA) Normal Urine Ketones Negative Urine Blood Negative Urine Nitrate Negative Urine Bilirubin 1+ H Urine Urobilinogen Normal Ur Leukocyte Esterase Neg Hepatitis A IgM Ab Hep Bs Antigen Hep B Core IgM Ab Hepatitis C Antibody 12/04/17 12/05/17 12/05/17 18:30 06:00 06:00 WBC 10.0 RBC 2.26 L Hgb 7.9 L Hct 23.4 L MCV 103.9 H MCH 34.8 H MCHC 33.5 RDW 22.3 H Plt Count 156 MPV 8.3 Neut % (Auto) Lymph % (Auto) [place] % (Auto) Eos % (Auto) Baso % (Auto) Neut # (Auto) Lymph # (Auto) [place] # (Auto) Eos # (Auto) Baso # (Auto) Retic Count PT INR APTT Sodium 136 Potassium 3.6 Chloride 103 Carbon Dioxide 23 Anion Gap 14 BUN 4 L Creatinine 0.4 L Est GFR ( Amer) > 60 Est GFR (Non-Af Amer) > 60 Random Glucose 100 Calcium 8.1 L Phosphorus 3.7 Magnesium 1.3 L Iron TIBC % Saturation Ferritin 17.3 Total Bilirubin 11.6 H 10.4 H Direct Bilirubin 9.9 H 8.7 H AST 139 H D 96 H D ALT 15 18 Alkaline Phosphatase 262 H D 205 H D Total Protein 8.1 6.4 Albumin 3.6 2.9 L Globulin 4.5 H 3.5 Albumin/Globulin Ratio 0.8 L 0.8 L Triglycerides 434 H Cholesterol 174 LDL Cholesterol Direct 103 HDL Cholesterol 17 L Lipase Vitamin B12 Folate Urine Color Urine Clarity Urine pH Ur Specific Garrett Urine Protein Urine Glucose (UA) Urine Ketones Urine Blood Urine Nitrate Urine Bilirubin Urine Urobilinogen Ur Leukocyte Esterase Hepatitis A IgM Ab Hep Bs Antigen Hep B Core IgM Ab Hepatitis C Antibody 12/05/17 12/05/17 12/05/17 06:00 06:00 06:00 WBC RBC Hgb Hct MCV MCH MCHC RDW Plt Count MPV Neut % (Auto) Lymph % (Auto) [place] % (Auto) Eos % (Auto) Baso % (Auto) Neut # (Auto) Lymph # (Auto) [place] # (Auto) Eos # (Auto) Baso # (Auto) Retic Count PT 26.1 H INR 2.4 APTT 45 H Sodium Potassium Chloride Carbon Dioxide Anion Gap BUN Creatinine Est GFR ( Amer) Est GFR (Non-Af Amer) Random Glucose Calcium Phosphorus Magnesium Iron 123 TIBC 245 L % Saturation 50 Ferritin Total Bilirubin Direct Bilirubin AST ALT Alkaline Phosphatase Total Protein Albumin Globulin Albumin/Globulin Ratio Triglycerides Cholesterol LDL Cholesterol Direct HDL Cholesterol Lipase Vitamin B12 857 Folate 3.8 Urine Color Urine Clarity Urine pH Ur Specific Garrett Urine Protein Urine Glucose (UA) Urine Ketones Urine Blood Urine Nitrate Urine Bilirubin Urine Urobilinogen Ur Leukocyte Esterase Hepatitis A IgM Ab Hep Bs Antigen Hep B Core IgM Ab Hepatitis C Antibody 12/05/17 12/05/17 06:00 10:03 WBC RBC Hgb Hct MCV MCH MCHC RDW Plt Count MPV Neut % (Auto) Lymph % (Auto) [place] % (Auto) Eos % (Auto) Baso % (Auto) Neut # (Auto) Lymph # (Auto) [place] # (Auto) Eos # (Auto) Baso # (Auto) Retic Count 3.2 H PT INR APTT Sodium Potassium Chloride Carbon Dioxide Anion Gap BUN Creatinine Est GFR ( Amer) Est GFR (Non-Af Amer) Random Glucose Calcium Phosphorus Magnesium Iron TIBC % Saturation Ferritin Total Bilirubin Direct Bilirubin AST ALT Alkaline Phosphatase Total Protein Albumin Globulin Albumin/Globulin Ratio Triglycerides Cholesterol LDL Cholesterol Direct HDL Cholesterol Lipase Vitamin B12 Folate Urine Color Urine Clarity Urine pH Ur Specific [place] Urine Protein Urine Glucose (UA) Urine Ketones Urine Blood Urine Nitrate Urine Bilirubin Urine Urobilinogen Ur Leukocyte Esterase Hepatitis A IgM Ab Negative Hep Bs Antigen Negative Hep B Core IgM Ab Negative Hepatitis C Antibody Negative Assessment & Plan (1) Abdominal pain Assessment and Plan: likely from hepatiis. Doubt cholecystitis. Status: Acute (2) Alcoholic hepatitis Assessment and Plan: Ellevated Maddrey score. Rec- follow labs, treat with steroids, check sono results, check preg test, check AFP. Discussed with Dr Copeland Status: Acute (3) Anemia Assessment and Plan: No gI bleeding. Hb was nine, 4 mo ago Status: Acute (4) Hyperbilirubinemia Status: Acute (5) Hepatic lesion Assessment and Plan: 08/10. Check AFp Status: Acute
--- NOTE | 2017-12-05 11:10 | US ---
Date of service: 12/04/2017 HISTORY: gallbladder wall thickening/pericholecystic fluid COMPARISON: CT abdomen and pelvis with IV contrast performed 12/04/17 TECHNIQUE: Sonographic evaluation of the right upper quadrant of the abdomen. FINDINGS: LIVER: Measures 27.0 cm in length. Echogenic liver may be seen in setting of hepatic parenchymal disease or fatty infiltration. No focal hepatic mass identified. The main portal vein appears patent with normal directional flow. No intrahepatic bile duct dilatation. GALLBLADDER: No gallstones. Gallbladder wall thickening/edema measuring approximately 9 mm. Negative sonographic Medina's sign as assessed by the wafer production lead worker. COMMON BILE DUCT: Measures 5 mm. PANCREAS: Not well-visualized. RIGHT KIDNEY: Measures 12.2 x 4.2 x 5.5 cm. No obstructing calculus or hydronephrosis identified. AORTA: Limited visualization appears grossly unremarkable. IVC: Limited visualization appears grossly unremarkable. OTHER FINDINGS: None . IMPRESSION: Marked hepatomegaly. Heterogeneous and echogenic liver may be seen in setting of hepatic parenchymal disease or fatty infiltration. Gallbladder wall thickening/pericholecystic edema. Negative sonographic Medina's sign as assessed by the wafer production lead worker. No gallstones identified. Correlate clinically for possibility of acute cholecystitis. Preliminary impression was provided by [employer].
--- NOTE | 2017-12-05 13:56 | CP.PCM.PN ---
Subjective - Date & Time of Evaluation Date of Evaluation: 12/05/17 Time of Evaluation: 06:50 - Subjective Subjective: Pt seen and examined this AM. Pt states that her pain is persistent but well controlled, denies any nausea or vomiting Objective - Vital Signs/Intake and Output Vital Signs (last 24 hours): Temp Pulse Resp BP Pulse Ox 98.6 F 93 H 20 98/63 L 100 12/05/17 07:56 12/05/17 07:56 12/05/17 07:56 12/05/17 07:56 12/05/17 13:28 Intake and Output: 12/05/17 12/05/17 06:59 18:59 Intake Total 857 Balance 857 - Medications Medications: Current Medications Famotidine (Pepcid) 40 mg PO DAILY [facility] Last Admin: 12/05/17 11:34 Dose: 40 mg Ferrous Sulfate (Feosol) 325 mg PO DAILY [facility] Last Admin: 12/05/17 10:35 Dose: 325 mg Piperacillin Sod/Tazobactam Sod (Zosyn 3.375 Gm Iv Premix) 3.375 gm in 50 mls @ 200 mls/hr IVPB Q6H [facility]; Protocol Last Admin: 12/05/17 10:35 Dose: 200 mls/hr Multivitamins/Vitamin C 10 ml/Thiamine HCl 100 mg/ Folic Acid 1 mg/ Sodium Chloride 1,011.2 mls @ 43 mls/hr IV .[id number] Stop: 12/06/17 00:22 Last Admin: 12/05/17 01:30 Dose: 43 mls/hr Morphine Sulfate (Morphine) 1 mg IV Q4H PRN PRN Reason: Pain, severe (8-10) Ondansetron HCl (Zofran Inj) 4 mg IVP Q6H PRN PRN Reason: Nausea/Vomiting Prednisone (Prednisone Tab) 40 mg PO DAILY [facility] Last Admin: 12/05/17 11:33 Dose: 40 mg - Labs Labs: 12/05/17 06:00 12/05/17 06:00 PT 26.1 SECONDS (9.7-12.2) H 12/05/17 06:00 INR 2.4 12/05/17 06:00 APTT 45 SECONDS (21-34) H 12/05/17 06:00 - Constitutional Appears: Well, Non-toxic, No Acute Distress - Head Exam Head Exam: ATRAUMATIC, NORMOCEPHALIC - Eye Exam Eye Exam: EOMI, Scleral icterus. absent: Conjunctival injection, Normal appearance - ENT Exam ENT Exam: Mucous Membranes Moist, Normal Oropharynx - Respiratory Exam Respiratory Exam: NORMAL BREATHING PATTERN. absent: Accessory Muscle Use, Respiratory Distress - Cardiovascular Exam Cardiovascular Exam: Tachycardia, REGULAR RHYTHM - GI/Abdominal Exam GI & Abdominal Exam: Distended (mild), Soft, Tenderness (RUQ). absent: Rebound - Extremities Exam Extremities Exam: absent: Calf Tenderness, Pedal Edema, Tenderness - Neurological Exam Neurological Exam: Alert, Awake, Oriented x3 - Psychiatric Exam Psychiatric exam: Normal Affect, Normal Mood - Skin Skin Exam: Dry, Intact (jaundice), Warm Assessment and Plan - Assessment and Plan (Free Text) Assessment: 27F with RUQ pain, hyperbilirubinemia, and gallbladder wall edema, unlikely to be gallbladder in etiology Plan: F/U GI recs CLD as tolerated if no GI plans for intervention IVF antibiotics Trend CBC/CMP No plans for intervention at this time--patient has chronic swelling of her gallbladder since July, and hepatosplenomegaly, current symptoms likely no gallbladder in origin--will continue to follow discussed with Dr. Lai Martinez, PGY2
[2017-12-05] MEDS ORDERED: Ciprofloxacin 400mg/200ml D5W 400 MG/200 ML BAG IVPB SCH (14:00)
[2017-12-05 23:40] VITALS: O2SAT 97
[2017-12-06] MEDS: Piperacill/Tazo 3.375gm in Dex 3.375 GM/50 ML BAG IVPB SCH ×2 (05:12→11:25)
--- NOTE | 2017-12-06 07:26 | CP.PCM.PN ---
Subjective - Date & Time of Evaluation Date of Evaluation: 12/06/17 Time of Evaluation: 07:25 - Subjective Subjective: Surgery PT feels better. Denies pain, Nausea vomiting. Ambulates. Tolerating CLD. Objective - Vital Signs/Intake and Output Vital Signs (last 24 hours): Temp Pulse Resp BP Pulse Ox 98.8 F 77 20 100/63 97 12/05/17 23:37 12/05/17 23:37 12/05/17 23:37 12/05/17 23:37 12/05/17 23:37 Intake and Output: 12/06/17 12/06/17 06:59 18:59 Intake Total 344 Balance 344 - Medications Medications: Current Medications Famotidine (Pepcid) 40 mg PO DAILY [facility] Last Admin: 12/05/17 11:34 Dose: 40 mg Ferrous Sulfate (Feosol) 325 mg PO DAILY [facility] Last Admin: 12/05/17 10:35 Dose: 325 mg Piperacillin Sod/Tazobactam Sod (Zosyn 3.375 Gm Iv Premix) 3.375 gm in 50 mls @ 200 mls/hr IVPB Q6H [facility]; Protocol Last Admin: 12/06/17 05:12 Dose: 200 mls/hr Influenza Virus Vaccine (Fluzone Quad [id number]) 60 mcg IM .ONCE ONE Stop: 12/07/17 10:01 Morphine Sulfate (Morphine) 1 mg IV Q4H PRN PRN Reason: Pain, severe (8-10) Ondansetron HCl (Zofran Inj) 4 mg IVP Q6H PRN PRN Reason: Nausea/Vomiting Pneumococcal Polyvalent Vaccine (Pneumovax 23 Vaccine) 0.5 ml IM .ONCE ONE Stop: 12/07/17 01:01 Prednisone (Prednisone Tab) 40 mg PO DAILY [facility] Last Admin: 12/05/17 11:33 Dose: 40 mg - Labs Labs: 12/05/17 06:00 12/05/17 06:00 PT 26.1 SECONDS (9.7-12.2) H 12/05/17 06:00 INR 2.4 12/05/17 06:00 APTT 45 SECONDS (21-34) H 12/05/17 06:00 - Constitutional Appears: No Acute Distress - Head Exam Head Exam: ATRAUMATIC, NORMAL INSPECTION, NORMOCEPHALIC - Eye Exam Eye Exam: EOMI, Normal appearance, PERRL, Scleral icterus Pupil Exam: NORMAL ACCOMODATION, PERRL - ENT Exam ENT Exam: Mucous Membranes Moist, Normal Exam - Neck Exam Neck Exam: Full ROM, Normal Inspection. absent: Lymphadenopathy - Cardiovascular Exam Cardiovascular Exam: REGULAR RHYTHM - GI/Abdominal Exam GI & Abdominal Exam: Soft. absent: Distended, Firm, Tenderness - Extremities Exam Extremities Exam: Full ROM - Back Exam Back Exam: NORMAL INSPECTION - Neurological Exam Neurological Exam: Alert, Awake, CN II-XII Intact, Normal Gait, Oriented x3 - Psychiatric Exam Psychiatric exam: Normal Affect, Normal Mood - Skin Skin Exam: Dry, Intact, Warm Additional comments: Juandice Assessment and Plan - Assessment and Plan (Free Text) Assessment: 27F with RUQ pain, hyperbilirubinemia, and gallbladder wall edema, unlikely to be gallbladder in etiology US no stones TIbili trending down Plan: F/U GI recs Trend LFT No plans for intervention at this time--patient has chronic swelling of her gallbladder since July, and hepatosplenomegaly, current symptoms likely no gallbladder in origin Will discuss with Dr. Hoyt
[2017-12-06 07:34] LABS: INR 1.9; PROTHROMBIN TIME 20.9 SECONDS (9.7-12.2)
[2017-12-06 07:37] LABS: HEMOGLOBIN 9.5 g/dL (11.0-16.0); MEAN CELL VOLUME 105.4 fL (81.0-99.0); MEAN CORPUSCULAR HEMOGLOBIN 33.7 pg (27.0-31.0); MEAN PLATELET VOLUME 8.4 fL (7.2-11.7); PLATELET COUNT 224 K/uL (130-400); RBC 2.82 Mil/uL (3.80-5.20); RED CELL DISTRIBUTION WIDTH 20.5 % (11.5-14.5); WHITE BLOOD COUNT 15.7 K/uL (4.8-10.8)
[2017-12-06 07:57] LABS: ALB/GLOB RATIO 0.9 (1.0-2.1); ALBUMIN 3.3 g/dL (3.5-5.0); ALT/SGPT 17 U/L (9-52); AST/SGOT 89 U/L (14-36); BILIRUBIN,DIRECT 12.1 mg/dL (0.0-0.4); BLOOD UREA NITROGEN 4 mg/dL (7-17); CALCIUM 8.6 mg/dl (8.6-10.4); GFR NON-AFRICAN AMERICAN > 60
[2017-12-06 09:00] VITALS: BP 97/64; PULSE 81; TEMP 98.6
--- NOTE | 2017-12-06 09:50 | CP.PCM.PN ---
Subjective - Date & Time of Evaluation Date of Evaluation: 12/06/17 Time of Evaluation: 09:40 - Subjective Subjective: Medical Attending Note: Patient seen and examined at bedside. Patient is awake, alert, oriented X3, Patient is very pleasant. Patient was seen by surgery team this morning. Diet advanced. No nausea, no vomitting, no abdominal pain, no fever, no chils, no constipation. We had a talk this morning that she needs to maintain herself off alcohol given her liver. I have provided her the name and location of AA meeting at [place] and did advise her that she will need to maintain sobriety and individuals through this group are going through a similar predicament and struggle in regards to alcoholism. I did advised to her since there is no GI through the [facility] that she should follow-up at institution where there is liver subspecialty given her alcoholic hepatitis. lastly, i did indicate to her that both her liver and gallbladder are in the same location and that if she has pain there, to be immediately by doctor or go to ER because she may need surgery for removal of gallbladder. She reports she understands. Objective - Vital Signs/Intake and Output Vital Signs (last 24 hours): Temp Pulse Resp BP Pulse Ox 98.6 F 81 20 97/64 L 97 12/06/17 08:59 12/06/17 08:59 12/06/17 08:59 12/06/17 08:59 12/06/17 08:59 Intake and Output: 12/06/17 12/06/17 06:59 18:59 Intake Total 344 Balance 344 - Medications Medications: Current Medications Famotidine (Pepcid) 40 mg PO DAILY [facility] Last Admin: 12/06/17 09:28 Dose: 40 mg Ferrous Sulfate (Feosol) 325 mg PO DAILY [facility] Last Admin: 12/06/17 09:28 Dose: 325 mg Folic Acid (Folic Acid) 1 mg PO DAILY [facility] Last Admin: 12/06/17 09:28 Dose: 1 mg Piperacillin Sod/Tazobactam Sod (Zosyn 3.375 Gm Iv Premix) 3.375 gm in 50 mls @ 200 mls/hr IVPB Q6H [facility]; Protocol Last Admin: 12/06/17 05:12 Dose: 200 mls/hr Influenza Virus Vaccine (Fluzone Quad [id number]) 60 mcg IM .ONCE ONE Stop: 12/07/17 10:01 Morphine Sulfate (Morphine) 1 mg IV Q4H PRN PRN Reason: Pain, severe (8-10) Multivitamins (Hexavitamin) 1 tab PO DAILY [facility] Last Admin: 12/06/17 09:28 Dose: 1 tab Ondansetron HCl (Zofran Inj) 4 mg IVP Q6H PRN PRN Reason: Nausea/Vomiting Pneumococcal Polyvalent Vaccine (Pneumovax 23 Vaccine) 0.5 ml IM .ONCE ONE Stop: 12/07/17 01:01 Prednisone (Prednisone Tab) 40 mg PO DAILY [facility] Last Admin: 12/06/17 09:28 Dose: 40 mg Thiamine HCl (Vitamin B1 Tab) 100 mg PO DAILY [facility] - Labs Labs: 12/06/17 07:21 12/06/17 07:21 PT 20.9 SECONDS (9.7-12.2) H D 12/06/17 07:21 INR 1.9 D 12/06/17 07:21 APTT 45 SECONDS (21-34) H 12/05/17 06:00 - Constitutional Appears: Non-toxic, No Acute Distress - Head Exam Head Exam: NORMAL INSPECTION Additional comments: jaundiced - Eye Exam Eye Exam: EOMI, Scleral icterus Pupil Exam: PERRL - ENT Exam ENT Exam: Mucous Membranes Moist - Respiratory Exam Respiratory Exam: Clear to Ausculation Bilateral, NORMAL BREATHING PATTERN. absent: Rales, Rhonchi, Wheezes - Cardiovascular Exam Cardiovascular Exam: REGULAR RHYTHM, +S1, +S2 - GI/Abdominal Exam GI & Abdominal Exam: Soft, Normal Bowel Sounds, Organomegaly (hepatomegaly and splenomegaly). absent: Distended, Guarding, Rigid, Tenderness, Rebound - Extremities Exam Extremities Exam: absent: Pedal Edema - Neurological Exam Neurological Exam: Alert, Awake, Oriented x3 - Psychiatric Exam Psychiatric exam: Normal Affect, Normal Mood. absent: Agitated, Anxious - Skin Skin Exam: Dry, Intact, Normal Color, Warm Assessment and Plan (1) Right upper quadrant pain Status: Acute (2) Alcoholic hepatitis Status: Acute (3) Hyperbilirubinemia Status: Acute (4) Transaminitis Status: Acute (5) Bereavement Status: Acute (6) Depression Status: Acute (7) Anemia Status: Acute (8) Prophylactic measure Status: Acute Attending/Attestation - Attestation I have personally seen and examined this patient.: Yes I have fully participated in the care of the patient.: Yes I have reviewed all pertinent clinical information, including history, physical exam and plan: Yes Notes (Text): Assessment and Plan (1) Right upper quadrant pain Assessment & Plan: * General surgery (Dr. Hoyt) on case-->help appreciated * GI (Dr. Arboleda covering Dr. Escalante) on case-->help appreciated * Gallbladder US (12/05/17): marked hepatomegaly. heterogenous and echogenic liver may be seen in hepatic parenchymal disease or fatty infiltration. Gallbladder wall thickening/pericholecystic edema. negative wynn's sign. No gallstones. * CT Abdomen/pelvis (12/04/17): hepatosplenomegaly. liver is massively enlarged. spleen is markedly enlarged. patent portal venous system. Gallbladder wall enahncement and pericholecystic fluid. Gallstones are not evident. * Patient with hx of alcoholic hepatitis and no gallstones * Maddreys's Discriminant: 74.3-->Poor prognosis * MELD score: 25 points 19.6% estimated 3 month mortality Status: Acute (2) Alcoholic hepatitis Assessment & Plan: * Gallbladder US (12/05/17): marked hepatomegaly. heterogenous and echogenic liver may be seen in hepatic parenchymal disease or fatty infiltration. Gallbladder wall thickening/pericholecystic edema. negative wynn's sign. No gallstones. * CT Abdomen/pelvis (12/04/17): hepatosplenomegaly. liver is massively enlarged. spleen is markedly enlarged. patent portal venous system. Gallbladder wall enahncement and pericholecystic fluid. Gallstones are not evident. * Maddreys's Discriminant: 74.3--Poor prognosis * MELD score: 25 points 19.6% estimated 3 month mortality * patient has completed steroid per July 2017 on discharge; has not been seen by GI secondary to unable to afford fee * AFP normal * negative * Prednisone 40mg PO daily (started 12/05/17) Status: Acute (3) Hyperbilirubinemia Assessment & Plan: * risk alcohol hepatitis and no gallstones * elevated total bilirubin/direct bilirubin * lfts trending down Status: Acute (4) Transaminitis Assessment & Plan: * hepatitis panel negative * lfts trending down * VASQUEZ negative * Anti-mitochondrial: negative * Anti-smooth: negative Status: Acute (5) Bereavement Assessment & Plan: * patient is coping with the of her brother * i have placed for psych and pastoral care Status: Acute (6) Depression Assessment & Plan: * pending psych evaluation Status: Acute (7) Anemia, Megablastic Assessment * patient denies coughing up blood and reports normal bowel movements * patient denies hx of menorrhagia * Reticulocyte count: 3.2 * Ferritin: 17.3 * Folate: 3.8 * B12: 857 * Received banana bag yesterday * Folate 1mg PO daily * Thiamine 100mg PO daily * MV1 1 tab PO daily Status: Chronic (8) Prophylactic measure Assessment & Plan: * scds b/l * ambulatory * pepcid 40mg PO daily Status: Acute
[2017-12-06] MEDS ORDERED: Pneumococcal 23-Valent Vaccine IM ONE (10:00)
[2017-12-06] MEDS ORDERED: Influenza Vaccine 60 MCG/0.5 ML SYR (3 yr & up) IM ONE (10:00)
[2017-12-06] MEDS ORDERED: Phytonadione 10 mg/ml Inj (Adult) SC ONE (10:00)
[2017-12-06] MEDS ORDERED: Multiple Vitamins Tab PO SCH (10:00)
--- NOTE | 2017-12-06 10:37 | PCM.PSYCH ---
Initial Psychiatric Evaluation - Initial Psychiatric Evaluation Legal Status: Capacity Chief Complaint (in patient's own words): I NEED TO STOP DRINKING AND START TAKING CARE OF MYSELF FOR MY DAUGHTER Patient's Reaction to Hospitalization: PT IS CONCERNED ABOUT HER HEALTH DUE TO HER HEAVY DRINKING SINCE THE NOF HER BROTHER. 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 BEFORE MAY, PT WAS A SOCIAL DRINKER. PT DENIES USE AND ABUSE OF ANY OTHER SUBSTANCE LICIT OR ILLICIT. PT HAS STATED THAT NOTHING AT FIRST MADE HER HAPPY BUT SHE HAS REALIZED SHE MUST STOP DRINKING FOR HERSELF AND HER FIVE YEAR OLD DAUGHTER PAST PSYCH HISTORY: PT HAS STARTED SEEING A THERAPIST TO HELP WITH HER DEPRESSION AND ALCOHOL USE DISORDER LEGAL HISTORY: DENIED HISTORY: DENIED SOCIAL HISTORY: PT WAS BORN IN [place]. SHE GRADUATED HIGH SCHOOL THERE. SHE IS AND HAS A FIVE YEAR OLD DAUGHTER MEDICAL HISTORY: PANCREATITIS Current Medications: Active Medications Generic Name Dose Route Start Last Admin Trade Name Freq PRN Reason Stop Dose Admin Famotidine 40 mg 12/05/17 10:00 12/06/17 09:28 Pepcid PO 40 mg DAILY MARCELA Administration Ferrous Sulfate 325 mg 12/05/17 10:00 12/06/17 09:28 Feosol PO 325 mg DAILY MARCELA Administration Folic Acid 1 mg 12/06/17 10:00 12/06/17 09:28 Folic Acid PO 1 mg DAILY MARCELA Administration Piperacillin Sod/Tazobactam Sod 3.375 gm in 50 mls @ 200 mls/hr 12/04/17 23:00 12/06/17 05:12 Zosyn 3.375 Gm Iv Premix IVPB 200 mls/hr Q6H MARCELA Administration Protocol Influenza Virus Vaccine 60 mcg 12/07/17 10:00 Fluzone Quad [id number] IM 12/07/17 10:01 .ONCE ONE Morphine Sulfate 1 mg 12/05/17 00:55 Morphine IV Q4H PRN Pain, severe (8-10) Multivitamins 1 tab 12/06/17 10:00 12/06/17 09:28 Hexavitamin PO 1 tab DAILY MARCELA Administration Ondansetron HCl 4 mg 12/04/17 23:30 Zofran Inj IVP Q6H PRN Nausea/Vomiting Pneumococcal Polyvalent Vaccine 0.5 ml 12/07/17 01:00 Pneumovax 23 Vaccine IM 12/07/17 01:01 .ONCE ONE Prednisone 40 mg 12/05/17 11:00 12/06/17 09:28 Prednisone Tab PO 40 mg DAILY MARCELA Administration Thiamine HCl 100 mg 12/06/17 10:00 Vitamin B1 Tab PO DAILY MARCELA Past Psychiatric History - Past Psychiatric History Prior Professional Help: SEE HPI Pertinent Medical Hx (Current Medical&Sleep Prob, Allergies): Allergies Allergy/AdvReac Type Severity Reaction Status Date / Time No Known Allergies Allergy Verified 12/04/17 12:48 Ferrous Gluconate [Iron] 1 tab PO DAILY 08/15/17 Multivitamin [Multi-Vitamin Daily] 1 tab PO DAILY 08/15/17 [place]-3 Fatty Acids/Fish Oil [Fish Oil 1,000 mg Capsule] 1 cap PO DAILY 08/15/17 Pantoprazole [Protonix EC Tab] 40 mg PO 0600 #14 ect 08/17/17 predniSONE [Prednisone] 40 mg PO DAILY #14 tab 08/17/17 Review of Systems - EENT Eyes: UNREMARKABLE Ears: UNREMARKABLE Nose/Mouth/Throat: UNREMARKABLE - Breasts Breasts: UNREMARKABLE - Cardiovascular Cardiovascular: UNREMARKABLE - Respiratory Respiratory: UNREMARKABLE - Gastrointestinal Gastrointestinal: UNREMARKABLE - Genitourinary Genitourinary: UNREMARKABLE - Reproductive: Female Reproductive:Female: UNREMARKABLE - Menstruation Menstruation: UNREMARKABLE - Musculoskeletal Musculoskeletal: UNREMARKABLE - Neurological Neurological: UNREMARKABLE - Psychiatric Psychiatric: Anxiety, Depression - Endocrine Endocrine: UNREMARKABLE - Hematologic/Lymphatic Hematologic: UNREMARKABLE Mental Status Examination - Personal Presentation Personal Presentation: Looks younger than stated age - Affect Affect: Constricted - Motor Activity Motor Activity: Calm - Reliability in Providing Information Reliability in Providing Information: Good - Speech Speech: Organized - Mood Mood: Depressed, Anxious - Formal Thought Process Formal Thought Process: No Impairment - Obsessions/Compulsions Obsessions: None Compulsions: None - Cognitive Functions Orientation: Person, Place, Situation, Time Sensorium: Alert Attention/Concentration: Attentive Abstract Thinking: As evidence by abstract perception of proverbs Estimate of Intelligence: Average Judgement: Intact, as evidence by: Good judgement Memory: Recent intact, as evidence by: Ability to recall events of the day - Risk Risk: Withdrawal - Strength & Assets Inventory Strength & Assets Inventory: Intelligence, Family support, Education, Cooperative - Limitations Limitations: Other ( OF BROTHER) DSM 5 DX - DSM 5 DSM 5 Diagnosis: MAJOR DEPRESSIVE DISORDER, SINGLE EPISODE, SEVERE WITHOUT PSYCHOTIC FEATURES PT ISSEEING A THERAPIST ALCOHOL USE DISORDERMODERATE PT IS SEEING A THERAPIST - Recommended/Plan of Treatment Treatment Recommendations and Plan of Treatment: SEE ABOVE Projected ELOS: 2 DAYS Prognosis: GOOD WI WITH CONTINUED TREATMENT - Smoking Cessation Smoking Cessation Initiated: No
--- NOTE | 2017-12-06 15:34 | CP.PCM.DIS ---
<Joy Copeland V - Last Filed: 12/08/17 15:12> Provider - Provider Date of Admission: 12/04/17 22:20 Attending physician: Jamshid Be MD Diagnosis - Discharge Diagnosis (1) Right upper quadrant pain Status: Acute (2) Alcoholic hepatitis Status: Acute (3) Hyperbilirubinemia Status: Acute (4) Transaminitis Status: Acute (5) Bereavement Status: Acute (6) Depression Status: Acute (7) Anemia Status: Acute (8) Prophylactic measure Status: Acute Hospital Course - Lab Results Lab Results: Micro Results 12/05/17 07:00 Blood-Venous Blood Culture - Preliminary NO GROWTH AFTER 3 DAYS 12/05/17 06:00 Blood-Venous Blood Culture - Preliminary NO GROWTH AFTER 3 DAYS Most Recent Lab Values WBC 15.7 K/uL (4.8-10.8) H D 12/06/17 07:21 RBC 2.82 Mil/uL (3.80-5.20) L 12/06/17 07:21 Hgb 9.5 g/dL (11.0-16.0) L 12/06/17 07:21 Hct 29.8 % (34.0-47.0) L 12/06/17 07:21 MCV 105.4 fL (81.0-99.0) H 12/06/17 07:21 MCH 33.7 pg (27.0-31.0) H 12/06/17 07:21 MCHC 32.0 g/dL (33.0-37.0) L 12/06/17 07:21 RDW 20.5 % (11.5-14.5) H 12/06/17 07:21 Plt Count 224 K/uL (130-400) 12/06/17 07:21 MPV 8.4 fL (7.2-11.7) 12/06/17 07:21 Neut % (Auto) 68.7 % (50.0-75.0) 12/04/17 13:58 Lymph % (Auto) 23.5 % (20.0-40.0) 12/04/17 13:58 [place] % (Auto) 4.6 % (0.0-10.0) 12/04/17 13:58 Eos % (Auto) 0.9 % (0.0-4.0) 12/04/17 13:58 Baso % (Auto) 2.3 % (0.0-2.0) H 12/04/17 13:58 Neut # (Auto) 8.7 K/uL (1.8-7.0) H 12/04/17 13:58 Lymph # (Auto) 3.0 K/uL (1.0-4.3) 12/04/17 13:58 [place] # (Auto) 0.6 K/uL (0.0-0.8) 12/04/17 13:58 Eos # (Auto) 0.1 K/uL (0.0-0.7) 12/04/17 13:58 Baso # (Auto) 0.3 K/uL (0.0-0.2) H 12/04/17 13:58 Retic Count 3.2 % (0.5-1.5) H 12/05/17 10:03 PT 20.9 SECONDS (9.7-12.2) H D 12/06/17 07:21 INR 1.9 D 12/06/17 07:21 APTT 45 SECONDS (21-34) H 12/05/17 06:00 Sodium 137 mmol/L (132-148) 12/06/17 07:21 Potassium 4.1 mmol/L (3.6-5.2) 12/06/17 07:21 Chloride 101 mmol/L (98-107) 12/06/17 07:21 Carbon Dioxide 25 mmol/L (22-30) 12/06/17 07:21 Anion Gap 15 (10-20) 12/06/17 07:21 BUN 4 mg/dL (7-17) L 12/06/17 07:21 Creatinine 0.4 mg/dL (0.7-1.2) L 12/06/17 07:21 Est GFR ( Amer) > 60 12/06/17 07:21 Est GFR (Non-Af Amer) > 60 12/06/17 07:21 Random Glucose 100 mg/dL (65-105) 12/06/17 07:21 Calcium 8.6 mg/dl (8.6-10.4) 12/06/17 07:21 Phosphorus 2.7 mg/dL (2.5-4.5) 12/06/17 07:21 Magnesium 1.7 mg/dL (1.6-2.3) 12/06/17 07:21 Iron 123 ug/dL (37-170) 12/05/17 06:00 TIBC 245 ug/dL (250-450) L 12/05/17 06:00 % Saturation 50 (20-55) 12/05/17 06:00 Ferritin 17.3 ng/mL 12/05/17 06:00 Total Bilirubin 14.1 mg/dL (0.2-1.3) H 12/06/17 07:21 Direct Bilirubin 12.1 mg/dL (0.0-0.4) H 12/06/17 07:21 AST 89 U/L (14-36) H 12/06/17 07:21 ALT 17 U/L (9-52) 12/06/17 07:21 Alkaline Phosphatase 217 U/L (38-126) H 12/06/17 07:21 Total Protein 7.2 g/dL (6.3-8.3) 12/06/17 07:21 Albumin 3.3 g/dL (3.5-5.0) L 12/06/17 07:21 Globulin 3.8 gm/dL (2.2-3.9) 12/06/17 07:21 Albumin/Globulin Ratio 0.9 (1.0-2.1) L 12/06/17 07:21 Triglycerides 434 mg/dL (0-149) H 12/05/17 06:00 Cholesterol 174 mg/dL (0-199) 12/05/17 06:00 LDL Cholesterol Direct 103 mg/dL (0-129) 12/05/17 06:00 HDL Cholesterol 17 mg/dL (30-70) L 12/05/17 06:00 Lipase 32 U/L (23-300) 12/04/17 13:58 Alpha Fetoprotein 2.4 ng/mL (0.0-7.5) 12/06/17 07:21 Vitamin B12 857 pg/mL (239-931) 12/05/17 06:00 Folate 3.8 ng/mL 12/05/17 06:00 Beta HCG, Quant < 2.39 mIU/ML 12/05/17 06:00 Urine Color [place] (YELLOW) 12/04/17 14:13 Urine Clarity Clear (Clear) 12/04/17 14:13 Urine pH 6.0 (5.0-8.0) 12/04/17 14:13 Ur Specific [place] 1.002 (1.003-1.030) L 12/04/17 14:13 Urine Protein Negative mg/dL (NEGATIVE) 12/04/17 14:13 Urine Glucose (UA) Normal mg/dL (Normal) 12/04/17 14:13 Urine Ketones Negative mg/dL (NEGATIVE) 12/04/17 14:13 Urine Blood Negative (NEGATIVE) 12/04/17 14:13 Urine Nitrate Negative (NEGATIVE) 12/04/17 14:13 Urine Bilirubin 1+ (NEGATIVE) H 12/04/17 14:13 Urine Urobilinogen Normal mg/dL (0.2-1.0) 12/04/17 14:13 Ur Leukocyte Esterase Neg Nancie/uL (Negative) 12/04/17 14:13 Hepatitis A IgM Ab Negative (NEGATIVE) 12/05/17 06:00 Hep Bs Antigen Negative (NEGATIVE) 12/05/17 06:00 Hep B Core IgM Ab Negative (NEGATIVE) 12/05/17 06:00 Hepatitis C Antibody Negative (NEGATIVE) 12/05/17 06:00 Discharge Plan - Discharge Medications Prescriptions: Famotidine [Pepcid] 20 mg PO BID #60 tab Ferrous Gluconate [Iron] 1 tab PO DAILY #30 tablet Folic Acid 1 mg PO DAILY #30 tab Multivitamin [Multi-Vitamin Daily] 1 tab PO DAILY #30 tablet [place]-3 Fatty Acids/Fish Oil [Fish Oil 1,000 mg Capsule] 1 cap PO DAILY #30 capsule predniSONE [predniSONE Tab] 10 mg PO ASDIR #42 tab predniSONE [predniSONE Tab] 40 mg PO DAILY #14 tab Thiamine [Vitamin B1 Tab] 100 mg PO DAILY #30 tab - Follow Up Plan Condition: FAIR Disposition: HOME/ ROUTINE Instructions: Acute Abdomen (Belly Pain), Adult (DC), Nausea and Vomiting, Adult (DC) Additional Instructions: Patient is stable for discharge home. Patient is being given prescriptions for thiamine, folic acid, multivitamin, iron, pepcid to be taken as directed. Patient will also be given a prescription for prednisone 40mg, to be taken daily for 1 month. Patient is then prescribed predisone 10mg, to be taken accordingly begining January 04. Take 3, 10mg pills daily for 1 week. Then take 2, 10mg pills daily for 1 week. Then take 1, 10mg pill daily for 1 week. Patient is instructed to follow up with [facility] during clinic. They are reachable at . Patient is advised to obtain all medical records on Thursday to have ready to bring to clinic. Patient is advised to follow up with Alcoholics Anonymous. Patient is advised to return to the ED with any worsening abdominal pain. Attending/Attestation - Attestation I have personally seen and examined this patient.: Yes I have fully participated in the care of the patient.: Yes I have reviewed all pertinent clinical information, including history, physical exam and plan: Yes Notes (Text): This is late computer entry for 12/06/17. Patient seen, examined and case discussed with certified medical technician. Patient is doing better. Denies acute complaints. Please see details from my conversation earlier in the day with the patient in my progress note. Patient seen by general surgery. No surgery intervention. Please note, I did speak with patient that if she DOES have pain over her right quadrant she may need surgery intervention to remove gallbladder which she is aware of. Patient seen by GI, informed stable from their standpoint for discharge. Blood cultures are negative. White count elevated likely secondary to steroid. Discussed with patient's pharmacy regarding clarification of steroid taper: 1) Prednisone 20mg tab PO BID for one week 2) Prednisone 10mg tab PO X3 tabs for one week, X2 tabs for one week, than 1 tab for one week. 3) Pepcid 20mg PO BID (1 month) as GI ppx while on steroid 4) MVI/Folic/Thiamine patient advised to apply for dee care at [facility] to be eligible for GI clinic located at the hospital. There is no dee GI clinic at this time. Patient recommended to institution such as [facility] because they do have subspeciality of hepatology she will benefit from. Patient STRONGLY recommended to start Alcoholic Anonymous groups to maintain sobrerity. Patient may in the future at some point need a liver transplant however I did indicate to her she has to maintain sobrerity to be eligible if she is at that circumstance. We have searched together on her cell phone to find a group in [place] where she lives. This is a summary of patient's hospitalization. Please see EMR for full detail of record. Discharge Diagnoses: (1) Right upper quadrant pain secondary to Alcoholic Hepatitis (Resolved) Assessment & Plan: * General surgery (Dr. Hoyt) on case-->help appreciated * GI (Dr. Arboleda covering Dr. Escalante) on case-->help appreciated * Gallbladder US (12/05/17): marked hepatomegaly. heterogenous and echogenic liver may be seen in hepatic parenchymal disease or fatty infiltration. Gallbladder wall thickening/pericholecystic edema. negative wynn's sign. No gallstones. * CT Abdomen/pelvis (12/04/17): hepatosplenomegaly. liver is massively enlarged. spleen is markedly enlarged. patent portal venous system. Gallbladder wall enahncement and pericholecystic fluid. Gallstones are not evident. * Patient with hx of alcoholic hepatitis and no gallstones * Maddreys's Discriminant: 74.3-->Poor prognosis * MELD score: 25 points 19.6% estimated 3 month mortality Status: Acute (2) Alcoholic hepatitis-->Chronic Assessment & Plan: * Gallbladder US (12/05/17): marked hepatomegaly. heterogenous and echogenic liver may be seen in hepatic parenchymal disease or fatty infiltration. Gallbladder wall thickening/pericholecystic edema. negative wynn's sign. No gallstones. * CT Abdomen/pelvis (12/04/17): hepatosplenomegaly. liver is massively enlarged. spleen is markedly enlarged. patent portal venous system. Gallbladder wall enahncement and pericholecystic fluid. Gallstones are not evident. * Maddreys's Discriminant: 74.3--Poor prognosis * MELD score: 25 points 19.6% estimated 3 month mortality * patient has completed steroid per July 2017 on discharge; has not been seen by GI secondary to unable to afford fee * AFP normal * negative * Prednisone 40mg PO daily (started 12/05/17) Status: Acute (3) Hyperbilirubinemia Assessment & Plan: * risk alcohol hepatitis and no gallstones * elevated total bilirubin/direct bilirubin * lfts trending down Status: Acute (4) Transaminitis Assessment & Plan: * hepatitis panel negative * lfts trending down * VASQUEZ negative * Anti-mitochondrial: negative * Anti-smooth: negative Status: Acute (5) Bereavement Assessment & Plan: * patient is coping with the of her brother * i have placed for psych and pastoral care * Patient is seeing therapist Status: Acute (6) Depression Assessment & Plan: * patient seen by psychiatrist Status: Acute (7) Anemia, Megablastic Assessment * patient denies coughing up blood and reports normal bowel movements * patient denies hx of menorrhagia * Reticulocyte count: 3.2 * Ferritin: 17.3 * Folate: 3.8 * B12: 857 * Received banana bag 12/05 * Folate 1mg PO daily * Thiamine 100mg PO daily * MV1 1 tab PO daily Status: Chronic (8) Prophylactic measure Assessment & Plan: * scds b/l * ambulatory * pepcid 40mg PO daily Status: Acute <Jacqueline Berman - Last Filed: 12/17/17 13:37> Provider - Provider Date of Admission: 12/04/17 22:20 Attending physician: Jamshid Be MD Consults: Dr. Arboleda GI Time Spent in preparation of Discharge (in minutes): 29 Diagnosis - Discharge Diagnosis (1) Alcoholic hepatitis Status: Acute (2) Anemia Status: Acute (3) Alcohol abuse Status: Acute (4) Depression Status: Acute Hospital Course - Lab Results Lab Results: Micro Results 12/05/17 07:00 Blood-Venous Blood Culture - Preliminary NO GROWTH AFTER 24 HOURS 12/05/17 06:00 Blood-Venous Blood Culture - Preliminary NO GROWTH AFTER 24 HOURS Most Recent Lab Values WBC 15.7 K/uL (4.8-10.8) H D 12/06/17 07:21 RBC 2.82 Mil/uL (3.80-5.20) L 12/06/17 07:21 Hgb 9.5 g/dL (11.0-16.0) L 12/06/17 07:21 Hct 29.8 % (34.0-47.0) L 12/06/17 07:21 MCV 105.4 fL (81.0-99.0) H 12/06/17 07:21 MCH 33.7 pg (27.0-31.0) H 12/06/17 07:21 MCHC 32.0 g/dL (33.0-37.0) L 12/06/17 07:21 RDW 20.5 % (11.5-14.5) H 12/06/17 07:21 Plt Count 224 K/uL (130-400) 12/06/17 07:21 MPV 8.4 fL (7.2-11.7) 12/06/17 07:21 Neut % (Auto) 68.7 % (50.0-75.0) 12/04/17 13:58 Lymph % (Auto) 23.5 % (20.0-40.0) 12/04/17 13:58 [place] % (Auto) 4.6 % (0.0-10.0) 12/04/17 13:58 Eos % (Auto) 0.9 % (0.0-4.0) 12/04/17 13:58 Baso % (Auto) 2.3 % (0.0-2.0) H 12/04/17 13:58 Neut # (Auto) 8.7 K/uL (1.8-7.0) H 12/04/17 13:58 Lymph # (Auto) 3.0 K/uL (1.0-4.3) 12/04/17 13:58 [place] # (Auto) 0.6 K/uL (0.0-0.8) 12/04/17 13:58 Eos # (Auto) 0.1 K/uL (0.0-0.7) 12/04/17 13:58 Baso # (Auto) 0.3 K/uL (0.0-0.2) H 12/04/17 13:58 Retic Count 3.2 % (0.5-1.5) H 12/05/17 10:03 PT 20.9 SECONDS (9.7-12.2) H D 12/06/17 07:21 INR 1.9 D 12/06/17 07:21 APTT 45 SECONDS (21-34) H 12/05/17 06:00 Sodium 137 mmol/L (132-148) 12/06/17 07:21 Potassium 4.1 mmol/L (3.6-5.2) 12/06/17 07:21 Chloride 101 mmol/L (98-107) 12/06/17 07:21 Carbon Dioxide 25 mmol/L (22-30) 12/06/17 07:21 Anion Gap 15 (10-20) 12/06/17 07:21 BUN 4 mg/dL (7-17) L 12/06/17 07:21 Creatinine 0.4 mg/dL (0.7-1.2) L 12/06/17 07:21 Est GFR ( Amer) > 60 12/06/17 07:21 Est GFR (Non-Af Amer) > 60 12/06/17 07:21 Random Glucose 100 mg/dL (65-105) 12/06/17 07:21 Calcium 8.6 mg/dl (8.6-10.4) 12/06/17 07:21 Phosphorus 2.7 mg/dL (2.5-4.5) 12/06/17 07:21 Magnesium 1.7 mg/dL (1.6-2.3) 12/06/17 07:21 Iron 123 ug/dL (37-170) 12/05/17 06:00 TIBC 245 ug/dL (250-450) L 12/05/17 06:00 % Saturation 50 (20-55) 12/05/17 06:00 Ferritin 17.3 ng/mL 12/05/17 06:00 Total Bilirubin 14.1 mg/dL (0.2-1.3) H 12/06/17 07:21 Direct Bilirubin 12.1 mg/dL (0.0-0.4) H 12/06/17 07:21 AST 89 U/L (14-36) H 12/06/17 07:21 ALT 17 U/L (9-52) 12/06/17 07:21 Alkaline Phosphatase 217 U/L (38-126) H 12/06/17 07:21 Total Protein 7.2 g/dL (6.3-8.3) 12/06/17 07:21 Albumin 3.3 g/dL (3.5-5.0) L 12/06/17 07:21 Globulin 3.8 gm/dL (2.2-3.9) 12/06/17 07:21 Albumin/Globulin Ratio 0.9 (1.0-2.1) L 12/06/17 07:21 Triglycerides 434 mg/dL (0-149) H 12/05/17 06:00 Cholesterol 174 mg/dL (0-199) 12/05/17 06:00 LDL Cholesterol Direct 103 mg/dL (0-129) 12/05/17 06:00 HDL Cholesterol 17 mg/dL (30-70) L 12/05/17 06:00 Lipase 32 U/L (23-300) 12/04/17 13:58 Alpha Fetoprotein 2.4 ng/mL (0.0-7.5) 12/06/17 07:21 Vitamin B12 857 pg/mL (239-931) 12/05/17 06:00 Folate 3.8 ng/mL 12/05/17 06:00 Beta HCG, Quant < 2.39 mIU/ML 12/05/17 06:00 Urine Color [place] (YELLOW) 12/04/17 14:13 Urine Clarity Clear (Clear) 12/04/17 14:13 Urine pH 6.0 (5.0-8.0) 12/04/17 14:13 Ur Specific [place] 1.002 (1.003-1.030) L 12/04/17 14:13 Urine Protein Negative mg/dL (NEGATIVE) 12/04/17 14:13 Urine Glucose (UA) Normal mg/dL (Normal) 12/04/17 14:13 Urine Ketones Negative mg/dL (NEGATIVE) 12/04/17 14:13 Urine Blood Negative (NEGATIVE) 12/04/17 14:13 Urine Nitrate Negative (NEGATIVE) 12/04/17 14:13 Urine Bilirubin 1+ (NEGATIVE) H 12/04/17 14:13 Urine Urobilinogen Normal mg/dL (0.2-1.0) 12/04/17 14:13 Ur Leukocyte Esterase Neg Nancie/uL (Negative) 12/04/17 14:13 Hepatitis A IgM Ab Negative (NEGATIVE) 12/05/17 06:00 Hep Bs Antigen Negative (NEGATIVE) 12/05/17 06:00 Hep B Core IgM Ab Negative (NEGATIVE) 12/05/17 06:00 Hepatitis C Antibody Negative (NEGATIVE) 12/05/17 06:00 - Hospital Course Hospital Course: Patient was evaluated and treated at [facility] from 12/04/17-12/06/17. Patient presented with complaints of abdominal pain, nausea, and distension. Patient has chronic alcohol abuse history with multiple admissions for same complaints. Labs revealed hyperbilirubinemia and transaminitis. Abdominal/pelvic CT and gallbladder US revealed hepatosplenomegaly, and gallbladder wall thickening and pericholecystic fluid. Dr. Hoyt consulted for surgery; Dr. Escalante consulted for GI; Dr. White consulted for Psych. Patient treated with antibiotics, pain control meds, electrolyte repletion, vitamin supplementation, and steroids. Patient stable for discharge home on steroids to follow up with GI at [facility], and to seek ongoing treatment of alcoholism with support groups such as AA. HPI on admission: "This is a 27 year old female with PMH of alcoholic pancreatitis, suspected alcoholic hepatitis in July 2017, hypertriglycemia, alcohol abuse, and anemia who presents with a 2 day history of abdominal pain with nausea and abdominal distension. Abdominal pain is described as located in the RUQ, intermittent, nonradiating, pressure, that is 8/10. Pt states that the pain was worse with dinner (12/03), but did not change after having breakfast today. Pt reports that she feels full after drinking or eating anything, and states that her abdomen looks more distended than usual. Pt denies fever, chills, chest pain, SOB, n/v/d, change in bowel movements, hematemesis, hematochezia, melena, rash, puritus, sick contacts, recent illness. Pt reports that her brother recently and she has been drinking alcohol. Pt was in [place] in [place] (for 8 days), where she drank heavily. Pt's last drink was 4 days ago, 12/02." Discharge Exam - Head Exam Head Exam: ATRAUMATIC, NORMAL INSPECTION, NORMOCEPHALIC - Eye Exam Eye Exam: EOMI, Normal appearance, Scleral icterus - ENT Exam ENT Exam: Normal Exam - Neck Exam Neck exam: Normal Inspection - Respiratory Exam Respiratory Exam: NORMAL BREATHING PATTERN, UNREMARKABLE - Cardiovascular Exam Cardiovascular Exam: REGULAR RHYTHM, Systolic Murmur - GI/Abdominal Exam GI & Abdominal Exam: Distended, Normal Bowel Sounds, Organomegaly, Soft. absent: Tenderness - Extremities Exam Extremities exam: normal inspection - Neurological Exam Neurological exam: Alert, Oriented x3 - Psychiatric Exam Psychiatric exam: Normal Affect, Normal Mood - Skin Skin Exam: Dry, Intact, Normal Color
[2017-12-07] MEDS ORDERED: Pneumococcal 23-Valent Vaccine IM ONE (01:00)
[2017-12-07] MEDS ORDERED: Influenza Vaccine 60 MCG/0.5 ML SYR (3 yr & up) IM ONE (10:00)
--- NOTE | 2017-12-07 20:42 | CARD ---
APPROVED REPORT Date of service: 12/04/2017 EKG Measurement Heart [id number] <Conclusion> Sinus tachycardia Poor R wave progression Possilbe left atrial enlargement Borderline ECG
== END 2017-12-06 19:30 | disposition home or self-care (01) | DRG 751 ==
LOC: C.ER 11:36 → C.9E 22:20 → C.3T 22:35
PROVIDERS: ADMIT Family Medicine; ATTEND Family Medicine
DX: F32.2 Major depressive disorder, single episode, severe without psychotic features (principal); K70.10 Alcoholic hepatitis without ascites; E78.5 Hyperlipidemia, unspecified; E78.1 Pure hyperglyceridemia; D64.9 Anemia, unspecified; Z63.4 Disappearance and death of family member

== ENCOUNTER 2018-01-09 18:52 | Inpatient (IN) | payer SELFPAY ==
[2018-01-09 18:54] VITALS: BMI 30.5
[2018-01-09] MEDS ORDERED: Epinephrine /Lidocaine HCL 1:100,000/2% 30 ml INJ STA (20:18)
--- NOTE | 2018-01-09 20:23 | C.PDOC ---
History Of Present Illness 27-year-old female presents to the ED from home for evaluation, Patient scratched a pimple-like wound to her left thumb, which then started spurting blood prior to arrival. Patient was initially seen in the ED Fast Track, where a pressure bandage controlled the bleeding, and she was sent to the main ED for further evaluation. Patient denies direct injury to the area or dizziness. Time Seen by Provider: 01/09/18 19:26 Chief Complaint (Nursing): Upper Extremity Problem/Injury History Per: Patient History/Exam Limitations: no limitations Onset/Duration Of Symptoms: Hrs Current Symptoms Are (Timing): Still Present Past Medical History Reviewed: Historical Data, Nursing Documentation, Vital Signs Vital Signs: Last Vital Signs Temp 98.9 F 01/09/18 19:14 Pulse 108 H 01/09/18 19:14 Resp 20 01/09/18 19:14 BP 110/69 01/09/18 19:14 Pulse Ox 98 01/09/18 19:14 - Medical History PMH: Anemia, Depression, Hypercholesterolemia, Hyperlipidemia, Pancreatitis Denies: Chronic Kidney Disease Surgical History: No Surg Hx Family History: States: Unknown Family Hx - Social History Hx Alcohol Use: No Hx Substance Use: No - Immunization History Hx Tetanus Toxoid Vaccination: Yes (2016) Hx Influenza Vaccination: No (2016) Hx Pneumococcal Vaccination: No (unk) Review Of Systems Skin: Positive for: Other (active bleeding from left thumb ) Physical Exam - Physical Exam Appears: Non-toxic, No Acute Distress, Other (stuperous ) Skin: Warm, Dry, Jaundice, Other (pinhole lesion with arterial spurting at dorsal aspect of left medial thumb. bleeding easily controlled with a bandage ) Head: Atraumatic, Normacephalic Eye(s): bilateral: PERRL, EOMI Oral Mucosa: Moist Neck: Supple Chest: Symmetrical, No Deformity, No Tenderness Cardiovascular: Rhythm Regular, No Murmur Respiratory: Normal Breath Sounds, No Rales, No Rhonchi, No Wheezing Gastrointestinal/Abdominal: Soft, No Tenderness, No Guarding, No Rebound, Ascites (large ) Extremity: Normal ROM, Capillary Refill (less than 2 seconds ) Neurological/Psych: Oriented x3, Normal Speech, Normal Cognition ED Course And Treatment - Laboratory Results Result Diagrams: 01/09/18 21:16 01/09/18 21:16 Lab Interpretation: Abnormal (Ammonia 70, T-Bili 17.5 increased from 15 in Nov 2016) ECG: Interpreted By Me ECG Rhythm: Sinus Tachycardia ECG Interpretation: Abnormal Rate From EC O2 Sat by Pulse Oximetry: 98 (on RA) Pulse Ox Interpretation: Normal - Radiology CXR: Interpreted by Me CXR Interpretation: Yes: Other (+ mild vascular congestion) Progress Note: Bloodwork, urinalysis, CXR, EKG ordered and reviewed. Review of prior records shows patient was evaluated in hospital from December 06- for decompensating alcoholic cirrhosis. Patient was encouraged to seek alcoholics anonymous and liver transplant. Patient has been actively drinking following di scharge. Her workup was significant for elevated and climbing bilirubin levels. Patient has a massively enlarged liver, spleen and portal venous system. Reevaluation Time: 22:26 Reassessment Condition: Unchanged - Physician Consult Information Outcome Of Conversation: 2199: d/w Dr. Elly Patton, Hospitalist- ok to admit to ICU. 2219: d/w Dr. Jonel Patton, ICU, defers to floor tx Medical Decision Making Medical Decision Making: end stage liver dz; Hep C ongoing alcohol abuse ETOH 211 H alcholic cirrhosis abd ascites, icteric, T. Bili 17.5 H WBC 17.5, low susp of SBP consider empiric abx consider abd paracentesis Discriminant Factor elevated PO steroids coagulopathy SQ Vit K Obtunded Hepatic encephalopathy ammonia 70 lactulose Alcohol Abuse ETOH 211 H CIWA protocol/Ativan PRN L hand art bleed tiny L medial thumb @ MCP ? underlying AVM/angioma easily controlled with direct pressure coags normal but suspect plt dysfunction sclerosis/SQ lido w epi PRN Anemia hgb 8.1 chronic vs dilutional consider blood tx. Code Status: acute on chronically ill wishes d/w pt, though w poor insight, multifactorial. full code. Disposition Doctor Will See Patient In The: Hospital Counseled Patient/Family Regarding: Studies Performed, Diagnosis - Disposition Disposition: HOSPITALIZED Disposition Time: 22:31 Condition: GUARDED - Clinical Impression Clinical Impression: Alcoholic hepatitis, Hyperbilirubinemia, Alcohol abuse, Anemia, Jaundice, Hepatic encephalopathy - Scribe Statement The provider has reviewed the documentation as recorded by the Scribe (Sona Patton) Provider Attestation: All medical record entries made by the Scribe were at my direction and personally dictated by me. I have reviewed the chart and agree that the record accurately reflects my personal performance of the history, physical exam, medical decision making, and the department course for this patient. I have also personally directed, reviewed, and agree with the discharge instructions and disposition.
[2018-01-09 21:27] LABS: BASO # 0.1 K/uL (0.0-0.2); BASO % 0.4 % (0.0-2.0); EOS # 0.1 K/uL (0.0-0.7); EOS % 0.4 % (0.0-4.0); HEMOGLOBIN 8.1 g/dL (11.0-16.0); LYMPH # 1.4 K/uL (1.0-4.3); LYMPH % 8.2 % (20.0-40.0); MEAN CELL VOLUME 110.3 fL (81.0-99.0); MEAN CORPUSCULAR HEMOGLOBIN 36.4 pg (27.0-31.0); MEAN PLATELET VOLUME 8.5 fL (7.2-11.7); MONO # 1.2 K/uL (0.0-0.8); NEUT # 14.2 K/uL (1.8-7.0); PLATELET COUNT 191 K/uL (130-400); RBC 2.24 Mil/uL (3.80-5.20); RED CELL DISTRIBUTION WIDTH 19.9 % (11.5-14.5); WHITE BLOOD COUNT 16.9 K/uL (4.8-10.8)
[2018-01-09 21:33] LABS: ALT/SGPT 20 U/L (9-52); AST/SGOT 110 U/L (14-36); BLOOD UREA NITROGEN 2 mg/dL (7-17); CALCIUM 7.8 mg/dl (8.6-10.4); GFR NON-AFRICAN AMERICAN > 60; LIPASE 25 U/L (23-300)
[2018-01-09 21:34] LABS: ALB/GLOB RATIO 0.8 (1.0-2.1)
[2018-01-09 21:38] LABS: INR 2.1; PROTHROMBIN TIME 23.2 SECONDS (9.7-12.2)
[2018-01-09] MEDS ORDERED: Phytonadione 10 mg/ml Inj (Adult) IV STA (22:57)
--- NOTE | 2018-01-09 23:03 | CP.PCM.CON ---
History of Present Illness - History of Present Illness History of Present Illness: 27 y/o female with pmx of chronic liver failure actively drinknig ETOH presents to [facility] with c/p cut in finger. Patient had dressing applied. ICU consulted for high Elaine luz. Patient seen and examined at bedside. Patient beatrice es any abdomineal pain or dizziness. Past Patient History - Infectious Disease Hx of Infectious Diseases: None - Past Medical History & Family History Past Medical History?: Yes - Past Social History Smoking Status: Never Smoked - CARDIAC Hx Hypercholesterolemia: Yes - PULMONARY Hx Respiratory Disorders: No - NEUROLOGICAL Hx Neurological Disorder: No - HEENT Hx HEENT Problems: No - RENAL Hx Chronic Kidney Disease: No - ENDOCRINE/METABOLIC Hx Endocrine Disorders: No - HEMATOLOGICAL/ONCOLOGICAL Hx Anemia: Yes - INTEGUMENTARY Hx Dermatological Problems: No - MUSCULOSKELETAL/RHEUMATOLOGICAL Hx Musculoskeletal Disorders: No - GASTROINTESTINAL Hx Pancreatitis: Yes - GENITOURINARY/GYNECOLOGICAL Hx Genitourinary Disorders: Yes Other/Comment: IRREGULAR PERIOD - PSYCHIATRIC Hx Depression: Yes Hx Substance Use: No - SURGICAL HISTORY Hx Section: Yes - ANESTHESIA Hx Anesthesia: Yes Hx Anesthesia Reactions: No Hx Malignant Hyperthermia: No Meds Allergies/Adverse Reactions: Allergies Allergy/AdvReac Type Severity Reaction Status Date / Time No Known Allergies Allergy Verified 01/09/18 19:21 Results - Vital Signs Recent Vital Signs: Last Vital Signs Temp 98.9 F 01/09/18 19:14 Pulse 108 H 01/09/18 19:14 Resp 20 01/09/18 19:14 BP 110/69 01/09/18 19:14 Pulse Ox 98 01/09/18 23:01 - Labs Result Diagrams: 01/09/18 21:16 01/09/18 21:16 Labs: Laboratory Results - last 24 hr 01/09/18 01/09/18 01/09/18 21:16 21:16 21:16 WBC 16.9 H RBC 2.24 L Hgb 8.1 L Hct 24.7 L MCV 110.3 H D MCH 36.4 H MCHC 33.0 RDW 19.9 H Plt Count 191 MPV 8.5 Neut % (Auto) 84.0 H Lymph % (Auto) 8.2 L [place] % (Auto) 7.0 Eos % (Auto) 0.4 Baso % (Auto) 0.4 Neut # (Auto) 14.2 H Lymph # (Auto) 1.4 [place] # (Auto) 1.2 H Eos # (Auto) 0.1 Baso # (Auto) 0.1 PT 23.2 H INR 2.1 APTT 43 H Sodium 136 Potassium 3.1 L Chloride 105 Carbon Dioxide 19 L Anion Gap 15 BUN 2 L Creatinine 0.4 L Est GFR ( Amer) > 60 Est GFR (Non-Af Amer) > 60 Random Glucose 113 H Lactic Acid Calcium 7.8 L Total Bilirubin 17.5 H AST 110 H D ALT 20 Alkaline Phosphatase 274 H D Ammonia Total Protein 6.9 Albumin 3.0 L Globulin 3.9 Albumin/Globulin Ratio 0.8 L Lipase 25 Alcohol, Quantitative 206 H 01/09/18 01/09/18 21:16 21:16 WBC RBC Hgb Hct MCV MCH MCHC RDW Plt Count MPV Neut % (Auto) Lymph % (Auto) [place] % (Auto) Eos % (Auto) Baso % (Auto) Neut # (Auto) Lymph # (Auto) [place] # (Auto) Eos # (Auto) Baso # (Auto) PT INR APTT Sodium Potassium Chloride Carbon Dioxide Anion Gap BUN Creatinine Est GFR ( Amer) Est GFR (Non-Af Amer) Random Glucose Lactic Acid 2.2 H Calcium Total Bilirubin AST ALT Alkaline Phosphatase Ammonia 70 H Total Protein Albumin Globulin Albumin/Globulin Ratio Lipase Alcohol, Quantitative Assessment & Plan - Assessment and Plan (Free Text) Assessment: LIver failure: strongly advised to sstop drinking -Coagulopathy: contineu VItamin K -high discriminant fctorL: sart oral prednisone 40 mg q24hrs -continue dvtpud/px Patient remains hemodynamically stable - Date & Time Date: 01/10/18 Time: 00:09
[2018-01-09] MEDS ORDERED: Sodium Chloride 0.9% 1,000 ML IV SCH (23:15)
[2018-01-09] MEDS ORDERED: Albumin Human 25% (12.5 gm/50 ml) IV ONE (23:29)
[2018-01-09] MEDS ORDERED: Phytonadione 10 mg/ml Inj (Adult) ONE (23:31)
[2018-01-09] MEDS ORDERED: Sodium Chloride 0.9% 1,000 ML ONE (23:41)
[2018-01-09 23:47] LABS: PLATELET ESTIMATE NORMAL (NORMAL)
[2018-01-09 23:50] LABS: BANDS 4 % (0-2); LYMPHOCYTE 10 % (20-40); MONOCYTE 7 % (0-10); MYELOCYTE 1 % (0-0); NEUTROPHIL 78 % (50-75); TOTAL CELLS COUNTED 100
[2018-01-09 23:51] LABS: ANISOCYTOSIS SLIGHT; HYPERSEGMENTATION PRESENT; HYPOCHROMIC MODERATE; LARGE PLATELETS PRESENT; OVALOCYTES SLIGHT; POIKILOCYTOSIS SLIGHT; SMUDGE CELLS PRESENT; TEARDROP CELLS SLIGHT
[2018-01-09 23:52] LABS: HELMET CELLS SLIGHT
--- NOTE | 2018-01-10 03:41 | CP.PCM.HP ---
<Gudelia Sharma - Last Filed: 01/10/18 04:42> History of Present Illness - History of Present Illness History of Present Illness: Admission History and Physical Medicine Dr. Elly Patton's Service HPI: 27 y/o female with PMHx of EtOH abuse, liver failure, and Major Depressive Disorder presented to the ER with a profuse bleed on her right thumb after she picked a scab. Upon being evaluated in urgent care and getting it bandaged, the provider sent her to get evaluated for admission due to her clinical presentation and labs. Patient was admitted previously when she had RUQ pain 2/2 EtOH per Nov 2017 records. She was instructed to call the liver clinic in [facility] however it was not done. Patient has finished her course of steroids. She has no primary care physician nor does she see a physician regularly. Now pt not complaining of abdominal pain in the emergency room evaluation. Her EtOH abuse began when her brother of [place] last May 2017. She began to feel depressed and started to drink heavily. She stopped drinking for a month. She feel depressed now and states that she does not know exactly why she is. Patient endorses a supportive family. She currently denies SI/HI. Patient feels slightly dizzy, some cough which she's been taking cough syrup x 2 weeks (does not know name), slight nausea, some leg edema. No vomiting, CP, SOB, diarrhea/consitpation, dysuria, hematemesis, hematochezia, hematuria. FDLMP was 3 months ago. No more menstrual cycles after she stopped her OCPs then. Endorses appetite loss, weight loss (estimates 20 lbs past few months) - been losing weight but getting abdominal distension. Denies recent travel, recent sickness, sick contacts. PMHx: pancreatitis, hypertriglyceredimia, anemia, EtOH dependence, liver failure 2/2 EtOH PSHx: CS 2012 SocHx: lives with , mother in law, and 5 year old daughter. 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 Currently unemployed. Since May 2017 when brother from heart attack, she has been drinking 1/2 a bottle of wine a day and sometimes some bottles of beer. Before then, she was just a social drinker (once a week). Denies tobacco and illicit drug use. FHx: dad with DM, brother of [place] at 28 y/o Meds: fish oil, vit D, stopped steroids last week (for liver failure), MVI. Was on OCPs but stopped 3 months ago. Allergies: NKDA Present on Admission - Present on Admission Any Indicators Present on Admission: Yes Review of Systems - Review of Systems Systems not reviewed;Unavailable: Acuity of Condition Past Patient History - Infectious Disease Hx of Infectious Diseases: None - Past Medical History & Family History Past Medical History?: Yes - Past Social History Smoking Status: Never Smoked - CARDIAC Hx Cardiac Disorders: Yes Hx Hypercholesterolemia: Yes - PULMONARY Hx Respiratory Disorders: No - NEUROLOGICAL Hx Neurological Disorder: No - HEENT Hx HEENT Problems: No - RENAL Hx Chronic Kidney Disease: No - ENDOCRINE/METABOLIC Hx Endocrine Disorders: No - HEMATOLOGICAL/ONCOLOGICAL Hx Blood Disorders: Yes Hx Anemia: Yes - INTEGUMENTARY Hx Dermatological Problems: No - MUSCULOSKELETAL/RHEUMATOLOGICAL Hx Musculoskeletal Disorders: No Hx Falls: No - GASTROINTESTINAL Hx Gastrointestinal Disorders: Yes Hx Pancreatitis: Yes - GENITOURINARY/GYNECOLOGICAL Hx Genitourinary Disorders: Yes Other/Comment: IRREGULAR PERIOD - PSYCHIATRIC Hx Psychophysiologic Disorder: Yes Hx Depression: Yes Hx Substance Use: No - SURGICAL HISTORY Hx Surgeries: Yes Hx Section: Yes - ANESTHESIA Hx Anesthesia: Yes Hx Anesthesia Reactions: No Hx Malignant Hyperthermia: No Meds Allergies/Adverse Reactions: Allergies Allergy/AdvReac Type Severity Reaction Status Date / Time No Known Allergies Allergy Verified 01/09/18 19:21 Physical Exam - Constitutional Appears: No Acute Distress - Head Exam Head Exam: ATRAUMATIC, NORMAL INSPECTION, NORMOCEPHALIC - Eye Exam Eye Exam: EOMI, Scleral icterus. absent: Normal appearance - ENT Exam Additional comments: lingual frenulum jaundiced - Neck Exam Neck exam: Positive for: Normal Inspection. Negative for: Lymphadenopathy, Tenderness - Respiratory Exam Respiratory Exam: Clear to Auscultation Bilateral, NORMAL BREATHING PATTERN - Cardiovascular Exam Cardiovascular Exam: Systolic Murmur Additional comments: 2/4 holosystolic murmur throughout all listening posts - GI/Abdominal Exam GI & Abdominal Exam: Distended, Normal Bowel Sounds. absent: Guarding, Tenderness Additional comments: jaundiced abdomen - Extremities Exam Extremities exam: Positive for: pedal edema. Negative for: calf tenderness, normal inspection Additional comments: LE pitting edema knees down - Neurological Exam Neurological exam: Alert, CN II-XII Intact, Oriented x3 - Psychiatric Exam Psychiatric exam: Depressed - Skin Skin Exam: Dry, Intact, Warm Additional comments: Jaundiced skin waist up Results - Vital Signs Recent Vital Signs: Last Vital Signs Temp 98.9 F 01/10/18 00:45 Pulse 106 H 01/10/18 00:45 Resp 20 01/10/18 00:45 BP 99/62 L 01/10/18 00:45 Pulse Ox 95 01/10/18 00:45 - Labs Result Diagrams: 01/09/18 21:16 01/09/18 21:16 Labs: Laboratory Results - last 24 hr 01/09/18 01/09/18 01/09/18 21:16 21:16 21:16 WBC 16.9 H RBC 2.24 L Hgb 8.1 L Hct 24.7 L MCV 110.3 H D MCH 36.4 H MCHC 33.0 RDW 19.9 H Plt Count 191 MPV 8.5 Neut % (Auto) 84.0 H Lymph % (Auto) 8.2 L [place] % (Auto) 7.0 Eos % (Auto) 0.4 Baso % (Auto) 0.4 Neut # (Auto) 14.2 H Lymph # (Auto) 1.4 [place] # (Auto) 1.2 H Eos # (Auto) 0.1 Baso # (Auto) 0.1 Neutrophils % (Manual) 78 H Band Neutrophils % 4 H Lymphocytes % (Manual) 10 L Monocytes % (Manual) 7 Myelocytes % 1 H Hypersegmented Polys Present Smudge Cells Present Platelet Estimate Normal Large Platelets Present Hypochromasia (manual) Moderate Poikilocytosis (manual Slight Anisocytosis (manual) Slight Macrocytosis (manual) Slight Tear Drop Cells Slight Ovalocytes Slight Helmet Cells Slight PT 23.2 H INR 2.1 APTT 43 H Sodium 136 Potassium 3.1 L Chloride 105 Carbon Dioxide 19 L Anion Gap 15 BUN 2 L Creatinine 0.4 L Est GFR ( Amer) > 60 Est GFR (Non-Af Amer) > 60 Random Glucose 113 H Lactic Acid Calcium 7.8 L Total Bilirubin 17.5 H AST 110 H D ALT 20 Alkaline Phosphatase 274 H D Ammonia Total Protein 6.9 Albumin 3.0 L Globulin 3.9 Albumin/Globulin Ratio 0.8 L Lipase 25 Alcohol, Quantitative 206 H 01/09/18 01/09/18 01/10/18 21:16 21:16 01:58 WBC RBC Hgb Hct MCV MCH MCHC RDW Plt Count MPV Neut % (Auto) Lymph % (Auto) [place] % (Auto) Eos % (Auto) Baso % (Auto) Neut # (Auto) Lymph # (Auto) [place] # (Auto) Eos # (Auto) Baso # (Auto) Neutrophils % (Manual) Band Neutrophils % Lymphocytes % (Manual) Monocytes % (Manual) Myelocytes % Hypersegmented Polys Smudge Cells Platelet Estimate Large Platelets Hypochromasia (manual) Poikilocytosis (manual Anisocytosis (manual) Macrocytosis (manual) Tear Drop Cells Ovalocytes Helmet Cells PT INR APTT Sodium Potassium Chloride Carbon Dioxide Anion Gap BUN Creatinine Est GFR ( Amer) Est GFR (Non-Af Amer) Random Glucose Lactic Acid 2.2 H 2.2 H Calcium Total Bilirubin AST ALT Alkaline Phosphatase Ammonia 70 H Total Protein Albumin Globulin Albumin/Globulin Ratio Lipase Alcohol, Quantitative Assessment & Plan - Assessment and Plan (Free Text) Assessment: 27 year old female with PMhx of EtOH dependence, major depressive disorder, liver failure 2/2 EtOH, anemia presented to the ER initially for profuse bleeding after picking a scab on her left thumb, however was sent to be admitted due to abn'l labs and clinical presentation. Patient currently on medicine floor and admitted. Liver failure 2/2 EtOH hepatitis Patient denies drinking for a month, however, EtOH quant still elevated at 206 -[facility] DF 74.3 poor prognosis -MELD score : 25 pts - 19.6% estimated 3 month mortality -AFP to r/o CA is wnl -prednisone 40 mg PO daily -consulted GI Dr. 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 MCV > 80 -denies bleeding from anywhere else (per HPI, denies menorrhagia, hematemesis, bloody BM, etc). -folate 1 mg PO daily, thiamine 100 mg PO daily, MVI 1mg PO daily Hx gallbladder wall thicking/pericholecystic fluid -seen by sergery at [facility] July 2017 and [facility] Nov 2017 -recs no surgical intervention -CMP monitor Hx SIRS -July 2017 and Nov 2017 -CXR 01/09/18 report - no changes compared to July 2017 -f/u bcx, ucx, procal, lactic acid 12:30am, Anemia 2/2 liver failure likely -CBC monitor -f/u stool guiaic -ferrous sulfate 325 mg PO daily coagulopathy 2/2 liver failure -increased inr, ptt, pt -vit K 10 mg PO x 3 soses w/ last dose 01/12/18 -holding all DVT ppx; will need to f/u venous dopplers of legs and if neg can rx SCDs hyperammonemia -admission ammonia at 70, elevated -lactulose 20 g PO four times a day with one dose now until BM -monitor BM ascites 2/2 liver -medicine to get IR involved for paracentesis once IRN lowers (vit K given on admission, can consider FFP) Major Depressive Disorder -evaluated by psych in Nov 2017 -bereavement, coping w/ of brother since May 2017 -denies SI/HI at the moment and reports supportive, loving family Ppx -DVT: hold chemical and physical AC 2/2 increased INR, f/u venous doppler legs and if neg SCDs -GI: pepcid 40 mg PO daily Code: Full Proxy: Binh () - [phone] *Patient requests providers to not discuss details of medical treatment to him case d/w Dr. Terence Sharma DO PGY1 <Dalton Patton - Last Filed: 01/10/18 19:50> Results - Vital Signs Recent Vital Signs: Last Vital Signs Temp 98.1 F 01/10/18 09:05 Pulse 104 H 01/10/18 09:05 Resp 18 01/10/18 09:05 BP 111/64 01/10/18 09:05 Pulse Ox 97 01/10/18 09:05 - Labs Result Diagrams: 01/10/18 08:26 01/10/18 08:26 Labs: Laboratory Results - last 24 hr 01/09/18 01/09/18 01/09/18 21:16 21:16 21:16 WBC 16.9 H RBC 2.24 L Hgb 8.1 L Hct 24.7 L MCV 110.3 H D MCH 36.4 H MCHC 33.0 RDW 19.9 H Plt Count 191 MPV 8.5 Neut % (Auto) 84.0 H Lymph % (Auto) 8.2 L [place] % (Auto) 7.0 Eos % (Auto) 0.4 Baso % (Auto) 0.4 Neut # (Auto) 14.2 H Lymph # (Auto) 1.4 [place] # (Auto) 1.2 H Eos # (Auto) 0.1 Baso # (Auto) 0.1 Neutrophils % (Manual) 78 H Band Neutrophils % 4 H Lymphocytes % (Manual) 10 L Monocytes % (Manual) 7 Myelocytes % 1 H Differential Comment Hypersegmented Polys Present Smudge Cells Present Platelet Estimate Normal Large Platelets Present Hypochromasia (manual) Moderate Poikilocytosis (manual Slight Anisocytosis (manual) Slight Macrocytosis (manual) Slight Tear Drop Cells Slight Ovalocytes Slight Helmet Cells Slight PT 23.2 H INR 2.1 APTT 43 H Sodium 136 Potassium 3.1 L Chloride 105 Carbon Dioxide 19 L Anion Gap 15 BUN 2 L Creatinine 0.4 L Est GFR ( Amer) > 60 Est GFR (Non-Af Amer) > 60 Random Glucose 113 H Lactic Acid Calcium 7.8 L Phosphorus Magnesium Total Bilirubin 17.5 H AST 110 H D ALT 20 Alkaline Phosphatase 274 H D Ammonia Total Protein 6.9 Albumin 3.0 L Globulin 3.9 Albumin/Globulin Ratio 0.8 L Lipase 25 Procalcitonin Alcohol, Quantitative 206 H 01/09/18 01/09/18 01/10/18 21:16 21:16 00:30 WBC RBC Hgb Hct MCV MCH MCHC RDW Plt Count MPV Neut % (Auto) Lymph % (Auto) [place] % (Auto) Eos % (Auto) Baso % (Auto) Neut # (Auto) Lymph # (Auto) [place] # (Auto) Eos # (Auto) Baso # (Auto) Neutrophils % (Manual) Band Neutrophils % Lymphocytes % (Manual) Monocytes % (Manual) Myelocytes % Differential Comment Hypersegmented Polys Smudge Cells Platelet Estimate Large Platelets Hypochromasia (manual) Poikilocytosis (manual Anisocytosis (manual) Macrocytosis (manual) Tear Drop Cells Ovalocytes Helmet Cells PT INR APTT Sodium Potassium Chloride Carbon Dioxide Anion Gap BUN Creatinine Est GFR ( Amer) Est GFR (Non-Af Amer) Random Glucose Lactic Acid 2.2 H Calcium Phosphorus Magnesium Total Bilirubin AST ALT Alkaline Phosphatase Ammonia 70 H Total Protein Albumin Globulin Albumin/Globulin Ratio Lipase Procalcitonin 0.14 L Alcohol, Quantitative 01/10/18 01/10/18 01/10/18 01:58 08:26 08:26 WBC 15.7 H RBC 1.98 L Hgb 7.3 L Hct 22.1 L MCV 111.2 H MCH 36.8 H MCHC 33.1 RDW 19.9 H Plt Count 157 MPV 8.7 Neut % (Auto) 79.3 H Lymph % (Auto) 14.7 L [place] % (Auto) 5.2 Eos % (Auto) 0.4 Baso % (Auto) 0.4 Neut # (Auto) 12.4 H Lymph # (Auto) 2.3 [place] # (Auto) 0.8 Eos # (Auto) 0.1 Baso # (Auto) 0.1 Neutrophils % (Manual) Band Neutrophils % Lymphocytes % (Manual) Monocytes % (Manual) Myelocytes % Differential Comment Hypersegmented Polys Smudge Cells Platelet Estimate Large Platelets Hypochromasia (manual) Poikilocytosis (manual Anisocytosis (manual) Macrocytosis (manual) Tear Drop Cells Ovalocytes Helmet Cells PT INR APTT Sodium 137 Potassium 3.2 L Chloride 108 H Carbon Dioxide 18 L Anion Gap 14 BUN < 2 L Creatinine 0.3 L Est GFR ( Amer) > 60 Est GFR (Non-Af Amer) > 60 Random Glucose 107 H Lactic Acid 2.2 H Calcium 7.7 L Phosphorus 3.2 Magnesium 1.6 Total Bilirubin 18.1 H AST 105 H ALT 15 Alkaline Phosphatase 250 H Ammonia Total Protein 6.4 Albumin 2.8 L Globulin 3.7 Albumin/Globulin Ratio 0.8 L Lipase Procalcitonin Alcohol, Quantitative 01/10/18 01/10/18 08:26 08:26 WBC RBC Hgb Hct MCV MCH MCHC RDW Plt Count MPV Neut % (Auto) Lymph % (Auto) [place] % (Auto) Eos % (Auto) Baso % (Auto) Neut # (Auto) Lymph # (Auto) [place] # (Auto) Eos # (Auto) Baso # (Auto) Neutrophils % (Manual) Band Neutrophils % Lymphocytes % (Manual) Monocytes % (Manual) Myelocytes % Differential Comment Hypersegmented Polys Smudge Cells Platelet Estimate Large Platelets Hypochromasia (manual) Poikilocytosis (manual Anisocytosis (manual) Macrocytosis (manual) Tear Drop Cells Ovalocytes Helmet Cells PT 21.7 H INR 2.0 APTT 44 H Sodium Potassium Chloride Carbon Dioxide Anion Gap BUN Creatinine Est GFR ( Amer) Est GFR (Non-Af Amer) Random Glucose Lactic Acid Calcium Phosphorus Magnesium Total Bilirubin AST ALT Alkaline Phosphatase Ammonia 75 H Total Protein Albumin Globulin Albumin/Globulin Ratio Lipase Procalcitonin Alcohol, Quantitative Attending/Attestation - Attestation I have personally seen and examined this patient.: Yes I have fully participated in the care of the patient.: Yes I have reviewed all pertinent clinical information: Yes Notes (Text): 01/10/18 19:45 Patient was see and examined in ER Bed #13 shortly after my conversation with ER physician Dr. Trujillo. History, Physical, Assessment and Plan, and all orders were gone over with resident Dr. Alex Sharma. Prior records from [facility] admission in July 2017 and [facility] admission in November 2017 were reviewed. Diagnosises were gone over with the patient at the time of my exam. She was counseled on abstaining from alcohol. She was made fully aware of her poor prognosis and it was stressed to her that she needed to follow up with the GI/Liver Specialist at [facility] in [place], [place] and continue to contact them (she stated that she called them 2 weeks prior and was informed that she would be contacted but has not heard back from them). Dalton Patton D.O.
--- NOTE | 2018-01-10 07:29 | RAD ---
Chest x-ray single frontal view HISTORY: Abdominal pain. COMPARISON: None available. Findings: Mild venous congestion. Right hilar prominence. Mild patchy increased markings at the left lung base. Elevated right hemidiaphragm Mild cardiomegaly. Impression: Mild venous congestion. Right hilar prominence. Mild patchy increased markings at the left lung base. Elevated right hemidiaphragm Mild cardiomegaly.
[2018-01-10 08:43] LABS: BASO # 0.1 K/uL (0.0-0.2); BASO % 0.4 % (0.0-2.0); EOS # 0.1 K/uL (0.0-0.7); EOS % 0.4 % (0.0-4.0); HEMOGLOBIN 7.3 g/dL (11.0-16.0); LYMPH # 2.3 K/uL (1.0-4.3); LYMPH % 14.7 % (20.0-40.0); MEAN CORPUSCULAR HEMOGLOBIN 36.8 pg (27.0-31.0); MEAN CORPUSCULAR HGB CONC 33.1 g/dL (33.0-37.0); MEAN PLATELET VOLUME 8.7 fL (7.2-11.7); MONO # 0.8 K/uL (0.0-0.8); MONO % 5.2 % (0.0-10.0); NEUT # 12.4 K/uL (1.8-7.0); NEUT % 79.3 % (50.0-75.0); RBC 1.98 Mil/uL (3.80-5.20); RED CELL DISTRIBUTION WIDTH 19.9 % (11.5-14.5); WHITE BLOOD COUNT 15.7 K/uL (4.8-10.8)
[2018-01-10 08:55] LABS: MEAN CELL VOLUME 111.2 fL (81.0-99.0)
[2018-01-10 08:57] LABS: PROTHROMBIN TIME 21.7 SECONDS (9.7-12.2)
[2018-01-10 09:01] LABS: ALB/GLOB RATIO 0.8 (1.0-2.1); ALBUMIN 2.8 g/dL (3.5-5.0); ALT/SGPT 15 U/L (9-52); AST/SGOT 105 U/L (14-36); BLOOD UREA NITROGEN < 2 mg/dL (7-17); CALCIUM 7.7 mg/dl (8.6-10.4); GFR NON-AFRICAN AMERICAN > 60
[2018-01-10 09:33] VITALS: BP 111/64; PULSE 104; RESP 18; TEMP 98.1; O2SAT 97
[2018-01-10] MEDS ORDERED: Multiple Vitamins Tab PO SCH (10:00)
--- NOTE | 2018-01-10 10:28 | CP.PCM.CON ---
History of Present Illness - History of Present Illness History of Present Illness: 27 yo female admitted from ED for Elevated Bilirubin when she presented for a bleeding lesion on her right hand that she scratched and bleeding continued. She was admitted last month with severe alcoholic liver disease, started on Pred nisone and was to be seen at Liver clinic. Reports she only had cough syrup but had alcohol level of 200. No bleeding, abdominal pain, N/V/C/D. Restarted on Prednison by medical team due to high discriminant index. Patient clearly is in denial over the seveerity of her liver disease. Coagulopathy noted as well. Past Patient History - Infectious Disease Hx of Infectious Diseases: None - Past Medical History & Family History Past Medical History?: Yes - Past Social History Smoking Status: Never Smoked Alcohol: > 2 Drinks/Day Drugs: Denies - CARDIAC Hx Cardiac Disorders: Yes Hx Hypercholesterolemia: Yes - PULMONARY Hx Respiratory Disorders: No - NEUROLOGICAL Hx Neurological Disorder: No - HEENT Hx HEENT Problems: No - RENAL Hx Chronic Kidney Disease: No - ENDOCRINE/METABOLIC Hx Endocrine Disorders: No - HEMATOLOGICAL/ONCOLOGICAL Hx Blood Disorders: Yes Hx Anemia: Yes Hx Cirrhosis: No Hx Hepatitis A: No Hx Hepatitis B: No Hx Hepatitis C: No - INTEGUMENTARY Hx Dermatological Problems: No - MUSCULOSKELETAL/RHEUMATOLOGICAL Hx Musculoskeletal Disorders: No Hx Falls: No - GASTROINTESTINAL Hx Gastrointestinal Disorders: Yes Hx Liver Failure: Yes Hx Pancreatitis: Yes - GENITOURINARY/GYNECOLOGICAL Hx Genitourinary Disorders: Yes Other/Comment: IRREGULAR PERIOD - PSYCHIATRIC Hx Psychophysiologic Disorder: Yes Hx Depression: Yes Hx Substance Use: No - SURGICAL HISTORY Hx Surgeries: Yes Hx Section: Yes - ANESTHESIA Hx Anesthesia: Yes Hx Anesthesia Reactions: No Hx Malignant Hyperthermia: No Meds Allergies/Adverse Reactions: Allergies Allergy/AdvReac Type Severity Reaction Status Date / Time No Known Allergies Allergy Verified 01/09/18 19:21 - Medications Medications: Current Medications Famotidine (Pepcid) 40 mg PO DAILY [facility] Last Admin: 01/10/18 10:16 Dose: 40 mg Ferrous Sulfate (Feosol) 325 mg PO DAILY [facility] Last Admin: 01/10/18 10:16 Dose: 325 mg Folic Acid (Folic Acid) 1 mg PO DAILY [facility] Last Admin: 01/10/18 10:16 Dose: 1 mg Sodium Chloride (Sodium Chloride 0.9%) 1,000 mls @ 50 mls/hr IV .Q20H [facility] Last Admin: 01/09/18 23:36 Dose: 50 mls/hr Lactulose (Enulose) 20 gm PO Q8H [facility] Last Admin: 01/10/18 06:25 Dose: 20 gm Lorazepam (Ativan) 1 mg IVP Q6H PRN PRN Reason: Symptoms of alcohol withdrawl Multivitamins (Hexavitamin) 1 tab PO DAILY [facility] Last Admin: 01/10/18 10:16 Dose: 1 tab Phytonadione (Vitamin K Tab) 10 mg PO DAILY [facility] Stop: 01/12/18 10:01 Last Admin: 01/10/18 10:15 Dose: 10 mg Prednisone (Prednisone Tab) 40 mg PO DAILY [facility] Stop: 01/14/18 10:01 Last Admin: 01/10/18 10:15 Dose: 40 mg Thiamine HCl (Vitamin B1 Tab) 100 mg PO DAILY [facility] Last Admin: 01/10/18 10:16 Dose: 100 mg Physical Exam - Constitutional Appears: No Acute Distress - Eye Exam Eye Exam: EOMI, PERRL, Scleral icterus - Respiratory Exam Respiratory Exam: NORMAL BREATHING PATTERN - Cardiovascular Exam Cardiovascular Exam: REGULAR RHYTHM - GI/Abdominal Exam GI & Abdominal Exam: Distended, Normal Bowel Sounds, Organomegaly, Soft. absent: Tenderness - Extremities Exam Extremities exam: Negative for: calf tenderness, pedal edema Additional comments: punctate eschar on right hand with intact dressing. No bleeding - Neurological Exam Neurological exam: Alert, Oriented x3 - Psychiatric Exam Psychiatric exam: Normal Affect, Normal Mood - Skin Skin Exam: Dry, Warm Results - Vital Signs Recent Vital Signs: Last Vital Signs Temp 98.1 F 01/10/18 09:05 Pulse 104 H 01/10/18 09:05 Resp 18 01/10/18 09:05 BP 111/64 01/10/18 09:05 Pulse Ox 97 01/10/18 09:05 - Labs Result Diagrams: 01/10/18 08:26 01/10/18 08:26 Labs: Laboratory Results - last 24 hr 01/09/18 01/09/18 01/09/18 21:16 21:16 21:16 WBC 16.9 H RBC 2.24 L Hgb 8.1 L Hct 24.7 L MCV 110.3 H D MCH 36.4 H MCHC 33.0 RDW 19.9 H Plt Count 191 MPV 8.5 Neut % (Auto) 84.0 H Lymph % (Auto) 8.2 L Allen % (Auto) 7.0 Eos % (Auto) 0.4 Baso % (Auto) 0.4 Neut # (Auto) 14.2 H Lymph # (Auto) 1.4 Allen # (Auto) 1.2 H Eos # (Auto) 0.1 Baso # (Auto) 0.1 Neutrophils % (Manual) 78 H Band Neutrophils % 4 H Lymphocytes % (Manual) 10 L Monocytes % (Manual) 7 Myelocytes % 1 H Differential Comment Hypersegmented Polys Present Smudge Cells Present Platelet Estimate Normal Large Platelets Present Hypochromasia (manual) Moderate Poikilocytosis (manual Slight Anisocytosis (manual) Slight Macrocytosis (manual) Slight Tear Drop Cells Slight Ovalocytes Slight Helmet Cells Slight PT 23.2 H INR 2.1 APTT 43 H Sodium 136 Potassium 3.1 L Chloride 105 Carbon Dioxide 19 L Anion Gap 15 BUN 2 L Creatinine 0.4 L Est GFR ( Amer) > 60 Est GFR (Non-Af Amer) > 60 Random Glucose 113 H Lactic Acid Calcium 7.8 L Phosphorus Magnesium Total Bilirubin 17.5 H AST 110 H D ALT 20 Alkaline Phosphatase 274 H D Ammonia Total Protein 6.9 Albumin 3.0 L Globulin 3.9 Albumin/Globulin Ratio 0.8 L Lipase 25 Alcohol, Quantitative 206 H 01/09/18 01/09/18 01/10/18 21:16 21:16 01:58 WBC RBC Hgb Hct MCV MCH MCHC RDW Plt Count MPV Neut % (Auto) Lymph % (Auto) Allen % (Auto) Eos % (Auto) Baso % (Auto) Neut # (Auto) Lymph # (Auto) Allen # (Auto) Eos # (Auto) Baso # (Auto) Neutrophils % (Manual) Band Neutrophils % Lymphocytes % (Manual) Monocytes % (Manual) Myelocytes % Differential Comment Hypersegmented Polys Smudge Cells Platelet Estimate Large Platelets Hypochromasia (manual) Poikilocytosis (manual Anisocytosis (manual) Macrocytosis (manual) Tear Drop Cells Ovalocytes Helmet Cells PT INR APTT Sodium Potassium Chloride Carbon Dioxide Anion Gap BUN Creatinine Est GFR ( Amer) Est GFR (Non-Af Amer) Random Glucose Lactic Acid 2.2 H 2.2 H Calcium Phosphorus Magnesium Total Bilirubin AST ALT Alkaline Phosphatase Ammonia 70 H Total Protein Albumin Globulin Albumin/Globulin Ratio Lipase Alcohol, Quantitative 01/10/18 01/10/18 01/10/18 08:26 08:26 08:26 WBC 15.7 H RBC 1.98 L Hgb 7.3 L Hct 22.1 L MCV 111.2 H MCH 36.8 H MCHC 33.1 RDW 19.9 H Plt Count 157 MPV 8.7 Neut % (Auto) 79.3 H Lymph % (Auto) 14.7 L Allen % (Auto) 5.2 Eos % (Auto) 0.4 Baso % (Auto) 0.4 Neut # (Auto) 12.4 H Lymph # (Auto) 2.3 Allen # (Auto) 0.8 Eos # (Auto) 0.1 Baso # (Auto) 0.1 Neutrophils % (Manual) Band Neutrophils % Lymphocytes % (Manual) Monocytes % (Manual) Myelocytes % Differential Comment Hypersegmented Polys Smudge Cells Platelet Estimate Large Platelets Hypochromasia (manual) Poikilocytosis (manual Anisocytosis (manual) Macrocytosis (manual) Tear Drop Cells Ovalocytes Helmet Cells PT INR APTT Sodium 137 Potassium 3.2 L Chloride 108 H Carbon Dioxide 18 L Anion Gap 14 BUN < 2 L Creatinine 0.3 L Est GFR ( Amer) > 60 Est GFR (Non-Af Amer) > 60 Random Glucose 107 H Lactic Acid Calcium 7.7 L Phosphorus 3.2 Magnesium 1.6 Total Bilirubin 18.1 H AST 105 H ALT 15 Alkaline Phosphatase 250 H Ammonia 75 H Total Protein 6.4 Albumin 2.8 L Globulin 3.7 Albumin/Globulin Ratio 0.8 L Lipase Alcohol, Quantitative 01/10/18 08:26 WBC RBC Hgb Hct MCV MCH MCHC RDW Plt Count MPV Neut % (Auto) Lymph % (Auto) Allen % (Auto) Eos % (Auto) Baso % (Auto) Neut # (Auto) Lymph # (Auto) Allen # (Auto) Eos # (Auto) Baso # (Auto) Neutrophils % (Manual) Band Neutrophils % Lymphocytes % (Manual) Monocytes % (Manual) Myelocytes % Differential Comment Hypersegmented Polys Smudge Cells Platelet Estimate Large Platelets Hypochromasia (manual) Poikilocytosis (manual Anisocytosis (manual) Macrocytosis (manual) Tear Drop Cells Ovalocytes Helmet Cells PT 21.7 H INR 2.0 APTT 44 H Sodium Potassium Chloride Carbon Dioxide Anion Gap BUN Creatinine Est GFR ( Amer) Est GFR (Non-Af Amer) Random Glucose Lactic Acid Calcium Phosphorus Magnesium Total Bilirubin AST ALT Alkaline Phosphatase Ammonia Total Protein Albumin Globulin Albumin/Globulin Ratio Lipase Alcohol, Quantitative Assessment & Plan (1) Alcoholic hepatitis with ascites Assessment and Plan: Patient with established alcholic hepatitis who had been started on steriods last month but clearly has had little or no effect due to continued alcohol consumption and non-compliance with follow up recommendations. In absence of any other symptoms to suggest GI bleeding, SBP, no tense ascites would suggest discharge to out patient follow up at and GI Clinic and referral for outpatient alcohol counseling. Until patient is compliant with abstinence her long and short term morbidity/mortality remain high. Previous virologic work up has been performed and does not need to be repeated at this time. No further intervention at this time. Recommend discharge with appropriate follow up discussed with Dr Lennon. Status: Acute (2) Hyperbilirubinemia Assessment and Plan: as above Status: Acute
--- NOTE | 2018-01-10 14:00 | CP.PCM.DIS ---
Provider - Provider Date of Admission: 01/09/18 22:22 Attending physician: Dalton Patton MD Consults: GI; Dr. Escalante Time Spent in preparation of Discharge (in minutes): 45 Hospital Course - Lab Results Lab Results: Most Recent Lab Values WBC 15.7 K/uL (4.8-10.8) H 01/10/18 08:26 RBC 1.98 Mil/uL (3.80-5.20) L 01/10/18 08:26 Hgb 7.3 g/dL (11.0-16.0) L 01/10/18 08:26 Hct 22.1 % (34.0-47.0) L 01/10/18 08:26 MCV 111.2 fL (81.0-99.0) H 01/10/18 08:26 MCH 36.8 pg (27.0-31.0) H 01/10/18 08:26 MCHC 33.1 g/dL (33.0-37.0) 01/10/18 08:26 RDW 19.9 % (11.5-14.5) H 01/10/18 08:26 Plt Count 157 K/uL (130-400) 01/10/18 08:26 MPV 8.7 fL (7.2-11.7) 01/10/18 08:26 Neut % (Auto) 79.3 % (50.0-75.0) H 01/10/18 08:26 Lymph % (Auto) 14.7 % (20.0-40.0) L 01/10/18 08:26 Jerome % (Auto) 5.2 % (0.0-10.0) 01/10/18 08:26 Eos % (Auto) 0.4 % (0.0-4.0) 01/10/18 08:26 Baso % (Auto) 0.4 % (0.0-2.0) 01/10/18 08:26 Neut # (Auto) 12.4 K/uL (1.8-7.0) H 01/10/18 08:26 Lymph # (Auto) 2.3 K/uL (1.0-4.3) 01/10/18 08:26 Jerome # (Auto) 0.8 K/uL (0.0-0.8) 01/10/18 08:26 Eos # (Auto) 0.1 K/uL (0.0-0.7) 01/10/18 08:26 Baso # (Auto) 0.1 K/uL (0.0-0.2) 01/10/18 08:26 Neutrophils % (Manual) 78 % (50-75) H 01/09/18 21:16 Band Neutrophils % 4 % (0-2) H 01/09/18 21:16 Lymphocytes % (Manual) 10 % (20-40) L 01/09/18 21:16 Monocytes % (Manual) 7 % (0-10) 01/09/18 21:16 Myelocytes % 1 % (0-0) H 01/09/18 21:16 Differential Comment 01/10/18 08:26 Hypersegmented Polys Present 01/09/18 21:16 Smudge Cells Present 01/09/18 21:16 Platelet Estimate Normal (NORMAL) 01/09/18 21:16 Large Platelets Present 01/09/18 21:16 Hypochromasia (manual) Moderate 01/09/18 21:16 Poikilocytosis (manual Slight 01/09/18 21:16 Anisocytosis (manual) Slight 01/09/18 21:16 Macrocytosis (manual) Slight 01/09/18 21:16 Tear Drop Cells Slight 01/09/18 21:16 Ovalocytes Slight 01/09/18 21:16 Helmet Cells Slight 01/09/18 21:16 PT 21.7 SECONDS (9.7-12.2) H 01/10/18 08:26 INR 2.0 01/10/18 08:26 APTT 44 SECONDS (21-34) H 01/10/18 08:26 Sodium 137 mmol/L (132-148) 01/10/18 08:26 Potassium 3.2 mmol/L (3.6-5.2) L 01/10/18 08:26 Chloride 108 mmol/L (98-107) H 01/10/18 08:26 Carbon Dioxide 18 mmol/L (22-30) L 01/10/18 08:26 Anion Gap 14 (10-20) 01/10/18 08:26 BUN < 2 mg/dL (7-17) L 01/10/18 08:26 Creatinine 0.3 mg/dL (0.7-1.2) L 01/10/18 08:26 Est GFR ( Amer) > 60 01/10/18 08:26 Est GFR (Non-Af Amer) > 60 01/10/18 08:26 Random Glucose 107 mg/dL (65-105) H 01/10/18 08:26 Lactic Acid 2.2 mmol/L (0.7-2.1) H 01/10/18 01:58 Calcium 7.7 mg/dl (8.6-10.4) L 01/10/18 08:26 Phosphorus 3.2 mg/dL (2.5-4.5) 01/10/18 08:26 Magnesium 1.6 mg/dL (1.6-2.3) 01/10/18 08:26 Total Bilirubin 18.1 mg/dL (0.2-1.3) H 01/10/18 08:26 AST 105 U/L (14-36) H 01/10/18 08:26 ALT 15 U/L (9-52) 01/10/18 08:26 Alkaline Phosphatase 250 U/L (38-126) H 01/10/18 08:26 Ammonia 75 umol/L (9-33) H 01/10/18 08:26 Total Protein 6.4 g/dL (6.3-8.3) 01/10/18 08:26 Albumin 2.8 g/dL (3.5-5.0) L 01/10/18 08:26 Globulin 3.7 gm/dL (2.2-3.9) 01/10/18 08:26 Albumin/Globulin Ratio 0.8 (1.0-2.1) L 01/10/18 08:26 Lipase 25 U/L (23-300) 01/09/18 21:16 Alcohol, Quantitative 206 mg/dl (0-10) H 01/09/18 21:16 - Hospital Course Hospital Course: Please refer to HnP from earlier today for full hospital course. 27 year old female with PMhx of EtOH dependence, major depressive disorder, liver failure 2/2 EtOH, anemia presented to the ER initially for profuse bleeding after picking a scab on her left thumb, however was sent to be admitted due to abn'l labs and clinical presentation. Patient currently on medicine floor and admitted. Liver failure 2/2 EtOH hepatitis Patient denies drinking for a month, however, EtOH quant still elevated at 206 -maddreys DF 74.3 poor prognosis -MELD score : 25 pts - 19.6% estimated 3 month mortality -AFP to r/o CA is wnl -prednisone 40 mg PO daily -consulted GI Dr. Escalante, recs appreciated Patient told to followup with liver clinic at [facility] phone number provided: [phone] patient stable for d/c as per Dr. Bingham Discharge Exam - Head Exam Head Exam: ATRAUMATIC, NORMAL INSPECTION, NORMOCEPHALIC Additional comments: please refer to HnP from today Discharge Plan - Follow Up Plan Condition: FAIR Disposition: HOME/ ROUTINE Patient education suggested?: Yes Instructions: Jaundice in Adults, Fluid in the Belly (Ascites), Jaundice, Adult (DC) Referrals: Dalton Patton MD [Staff Provider] -
--- NOTE | 2018-01-11 23:09 | CARD ---
APPROVED REPORT Date of service: 01/09/2018 EKG Measurement Heart [id number] <Conclusion> Sinus tachycardia Poor R wave progression probably positional or due to anterior wall VT, old Borderline EKG
== END 2018-01-10 13:30 | disposition home or self-care (01) | DRG 433 ==
LOC: C.ER 18:52 → C.9E 22:22 → C.6T 23:39
PROVIDERS: ADMIT Family Medicine; ATTEND Family Medicine
DX: K70.11 Alcoholic hepatitis with ascites (principal); D68.9 Coagulation defect, unspecified; K70.40 Alcoholic hepatic failure without coma; Z91.19 Patient's noncompliance with other medical treatment and regimen; E78.5 Hyperlipidemia, unspecified; B19.20 Unspecified viral hepatitis C without hepatic coma; K70.31 Alcoholic cirrhosis of liver with ascites; F32.9 Major depressive disorder, single episode, unspecified; F10.20 Alcohol dependence, uncomplicated; Y90.7 Blood alcohol level of 200-239 mg/100 ml